=== PATIENT | female | born 2000 | race Caucasian/White ===

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

== ENCOUNTER 2018-03-15 11:20 | Emergency (ER) | payer OTHER ==
[2018-03-15 11:28] VITALS: TEMP 98
--- NOTE | 2018-03-15 11:43 | ED ---
Abdominal Pain HPI - General Chief Complaint: Abdominal Pain Stated Complaint: 9 WEEKS PREG AND CRAMPING Time Seen by Provider: 03/15/18 11:29 Source: patient, RN notes reviewed Mode of arrival: ambulatory Limitations: no limitations - History of Present Illness Initial Comments: 17-year-old female presented emergency Department chief complaint abdominal cramping and early . Patient states she is A0 currently 9 weeks and seen CLIENT COORDINATOR in.. Patient states that she had an argument last night with her fianc. Patient states that she started cramping this morning. She's had no dysuria no hematuria denies any vaginal bleeding or vaginal discharge. Patient states that she had a normal vaginal last time with no complications. Patient denies any diarrhea or constipation this time. Patient denies any current nausea vomiting. - Related Data Home Medications Medication Instructions Recorded Confirmed Xso-Phxy-Dxpqe Acid 1 cap PO DAILY 03/15/18 03/15/18 [-U Capsule (formulary)] Previous Rx's Medication Instructions Recorded Nitrofurantoin Monohyd/M-Cryst 100 mg PO Q12HR #10 cap 03/15/18 [Macrobid] Allergies Allergy/AdvReac Type Severity Reaction Status Date / Time latex Allergy Rash/Hives Verified 03/15/18 12:32 pine nut Allergy Rapid Verified 03/15/18 12:32 Heart Rate tree nut Allergy Unknown Verified 03/15/18 12:32 venom-honey bee Allergy Rash/Hives Verified 03/15/18 12:32 [bee venom (honey bee)] artifical kang tree Allergy Rash/Hives Uncoded 03/15/18 11:28 Review of Systems ROS Statement: Those systems with pertinent positive or pertinent negative responses have been documented in the HPI. ROS Other: All systems not noted in ROS Statement are negative. Past Medical History Past Medical History: No Reported History History of Any Multi-Drug Resistant Organisms: None Reported Past Surgical History: No Surgical Hx Reported Past Psychological History: No Psychological Hx Reported Smoking Status: Current every day smoker Past Alcohol Use History: None Reported Past Drug Use History: None Reported - Past Family History Father Family Medical History: Hypertension General Exam Limitations: no limitations General appearance: alert, in no apparent distress Head exam: Present: atraumatic, normocephalic, normal inspection Neck exam: Present: normal inspection. Absent: tenderness, meningismus, lymphadenopathy Respiratory exam: Present: normal lung sounds bilaterally. Absent: respiratory distress, wheezes, rales, rhonchi, stridor Cardiovascular Exam: Present: regular rate, normal rhythm, normal heart sounds. Absent: systolic murmur, diastolic murmur, rubs, gallop, clicks GI/Abdominal exam: Present: soft, normal bowel sounds. Absent: distended, tenderness, guarding, rebound, rigid Back exam: Absent: CVA tenderness (R), CVA tenderness (L) Skin exam: Present: warm, dry, intact, normal color. Absent: rash Course Vital Signs 03/15/18 11:27 Temperature 98.0 F Pulse Rate 84 Respiratory 18 Rate Blood Pressure 115/67 O2 Sat by Pulse 98 Oximetry Medical Decision Making - Medical Decision Making 17-year-old female presented for abdominal pain and early . Patient that she was around 9 weeks . All son was obtained which shows a gestational sac correlating for less than 6 weeks. Patient does have an hCG of 19,000. Patient will have repeat ultrasound with CLIENT COORDINATOR in one week. I did explain this is concerning for blighted ovum versus dates not according with her. Patient will be treated for a symptomatically bacteria this time - Lab Data Result diagrams: 03/15/18 12:18 03/15/18 12:18 Lab Results 03/15/18 03/15/18 03/15/18 Range/Units 12:18 12:18 12:18 WBC (4.0-11.0) k/uL RBC (3.80-5.40) m/uL Hgb (11.4-16.0) gm/dL Hct (34.0-46.0) % MCV (80.0-100.0) fL MCH (25.0-35.0) pg MCHC (31.0-37.0) g/dL RDW (11.5-15.5) % Plt Count (150-450) k/uL Neutrophils % % Lymphocytes % % Monocytes % % Eosinophils % % Basophils % % Neutrophils # (1.3-7.7) k/uL Lymphocytes # (1.0-4.8) k/uL Monocytes # (0-1.0) k/uL Eosinophils # (0-0.7) k/uL Basophils # (0-0.2) k/uL Anisocytosis Sodium 140 (137-145) mmol/L Potassium 4.3 (3.5-5.1) mmol/L Chloride 109 H (98-107) mmol/L Carbon Dioxide 24 (22-30) mmol/L Anion Gap 7 mmol/L BUN 9 (7-17) mg/dL Creatinine 0.45 L (0.52-1.04) mg/dL Est GFR (CKD-EPI)AfAm >90 (>60 ml/min/1.73 sqM) Est GFR (CKD-EPI)NonAf >90 (>60 ml/min/1.73 sqM) Glucose 90 (74-99) mg/dL Calcium 9.3 (8.4-10.2) mg/dL HCG, Quant 96439.8 mIU/mL Urine Color Yellow Urine Appearance Cloudy H (Clear) Urine pH 7.0 (5.0-8.0) Ur Specific [place] 1.024 (1.001-1.035) Urine Protein Trace H (Negative) Urine Glucose (UA) Negative (Negative) Urine Ketones Negative (Negative) Urine Blood Negative (Negative) Urine Nitrite Negative (Negative) Urine Bilirubin Negative (Negative) Urine Urobilinogen <2.0 (<2.0) mg/dL Ur Leukocyte Esterase Moderate H (Negative) Urine RBC <1 (0-5) /hpf Urine WBC 4 (0-5) /hpf Ur Squamous Epith Cells 7 H (0-4) /hpf Urine Bacteria Rare H (None) /hpf Urine Mucus Occasional H (None) /hpf Blood Type A Positive Blood Type Recheck [facility] ONLY 03/15/18 Range/Units 12:18 WBC 8.1 (4.0-11.0) k/uL RBC 4.66 (3.80-5.40) m/uL Hgb 13.6 (11.4-16.0) gm/dL Hct 40.4 (34.0-46.0) % MCV 86.8 (80.0-100.0) fL MCH 29.2 (25.0-35.0) pg MCHC 33.7 (31.0-37.0) g/dL RDW 16.4 H (11.5-15.5) % Plt Count 168 (150-450) k/uL Neutrophils % 59 % Lymphocytes % 30 % Monocytes % 4 % Eosinophils % 5 % Basophils % 0 % Neutrophils # 4.8 (1.3-7.7) k/uL Lymphocytes # 2.4 (1.0-4.8) k/uL Monocytes # 0.3 (0-1.0) k/uL Eosinophils # 0.4 (0-0.7) k/uL Basophils # 0.0 (0-0.2) k/uL Anisocytosis Slight Sodium (137-145) mmol/L Potassium (3.5-5.1) mmol/L Chloride (98-107) mmol/L Carbon Dioxide (22-30) mmol/L Anion Gap mmol/L BUN (7-17) mg/dL Creatinine (0.52-1.04) mg/dL Est GFR (CKD-EPI)AfAm (>60 ml/min/1.73 sqM) Est GFR (CKD-EPI)NonAf (>60 ml/min/1.73 sqM) Glucose (74-99) mg/dL Calcium (8.4-10.2) mg/dL HCG, Quant mIU/mL Urine Color Urine Appearance (Clear) Urine pH (5.0-8.0) Ur Specific [place] (1.001-1.035) Urine Protein (Negative) Urine Glucose (UA) (Negative) Urine Ketones (Negative) Urine Blood (Negative) Urine Nitrite (Negative) Urine Bilirubin (Negative) Urine Urobilinogen (<2.0) mg/dL Ur Leukocyte Esterase (Negative) Urine RBC (0-5) /hpf Urine WBC (0-5) /hpf Ur Squamous Epith Cells (0-4) /hpf Urine Bacteria (None) /hpf Urine Mucus (None) /hpf Blood Type Blood Type Recheck Disposition Clinical Impression: Threatened miscarriage, Asymptomatic bacteriuria during Disposition: HOME SELF-CARE Condition: Stable Instructions: Threatened Miscarriage (ED) Additional Instructions: Please return to the Emergency Department if symptoms worsen or any other concerns. Prescriptions: Nitrofurantoin Monohyd/M-Cryst [Macrobid] 100 mg PO Q12HR #10 cap Is patient prescribed a controlled substance at d/c from ED?: No Referrals: None,Stated [Primary Care Provider] - 1-2 days Time of Disposition: 13:48
[2018-03-15 12:47] LABS: Anisocytosis Slight; Basophils % (A) 0 %; Eosinophils # (A) 0.4 k/uL (0-0.7); Eosinophils % (A) 5 %; HCT 40.4 % (34.0-46.0); HGB 13.6 gm/dL (11.4-16.0); Lymphocytes # (A) 2.4 k/uL (1.0-4.8); Lymphocytes % (A) 30 %; MCH 29.2 pg (25.0-35.0); MCHC 33.7 g/dL (31.0-37.0); MCV 86.8 fL (80.0-100.0); Mean Platelet Volume 8.9; Monocytes # (A) 0.3 k/uL (0-1.0); Monocytes % (A) 4 %; Neutrophils # (A) 4.8 k/uL (1.3-7.7); Neutrophils % (A) 59 %; Platelet Count 168 k/uL (150-450); RBC 4.66 m/uL (3.80-5.40); RDW 16.4 % (11.5-15.5); WBC 8.1 k/uL (4.0-11.0)
[2018-03-15 12:50] LABS: Appearance,Urine Cloudy (Clear); Bacteria,Urine Rare /hpf; Bilirubin,Urine Negative (Negative); Blood,Urine Negative (Negative); Color,Urine Yellow; Glucose,Urine (UA) Negative (Negative); Ketones,Urine Negative (Negative); Leukocyte Esterase,Urine Moderate (Negative); Mucus,Urine Occasional /hpf; Nitrite,Urine Negative (Negative); Protein,Urine Trace (Negative); RBC,Urine <1 /hpf (0-5); Specific Gravity,Urine 1.024 (1.001-1.035); Squamous Epithelial Cell,Urine 7 /hpf (0-4); Urobilinogen,Urine <2.0 mg/dL (<2.0)
[2018-03-15 12:56] LABS: Anion Gap 7 mmol/L; Blood Urea Nitrogen 9 mg/dL (7-17); Calcium 9.3 mg/dL (8.4-10.2); Carbon Dioxide 24 mmol/L (22-30); Chloride 109 mmol/L (98-107); Glucose 90 mg/dL (74-99); Potassium 4.3 mmol/L (3.5-5.1); Sodium 140 mmol/L (137-145)
--- NOTE | 2018-03-15 13:35 | US ---
EXAMINATION TYPE: Transabdominal DATE OF EXAM: 06/03/17 COMPARISON: NONE CLINICAL HISTORY: Pain. Cramping EXAM PERFORMED: Transabdominal (TA) EXAM MEASUREMENTS: GESTATIONAL AGE / DATING Physician Established: Not yet established Dates by LMP: (8 weeks/6 days) EDC: 10/19/18 Dates by First Scan: No previous this is first scan Dates by Current Scan for: (5 weeks/5 days) - MSD MATERNAL ANATOMY Uterus: 9.2 x 5.0 x 6.4cm Right Ovary: 3.4 x 2.8 x 3.2cm Left Ovary: 2.6 x 1.8 x 2.4cm Post CDS / Adnexa: wnl Presence of free fluid: no Presence of corpus luteal cyst: yes, complex area right ovary = 2.1 x 2.3 x 2.2cm GESTATION / SURVEY MSD: 1.5cm (5 weeks/5 days) Yolk Sac (normal less than 6mm): 0.3cm Unable to visualize pole at this time Date of LMP: 01/12/18 Beta HcG (if available): not available Gestational sac with yolk sac identified within uterus, unable to visualize pole at this time. Probable corpus luteum right ovary. IMPRESSION: EARLY GESTATION VERSUS BLIGHTED OVUM. SHORT-TERM FOLLOW-UP +/- SERIAL BETA HCGS WOULD BE SUGGESTED.
[2018-03-15 13:38] LABS: HCG,Quantitative Serum 19164.8 mIU/mL
[2018-03-15 14:22] VITALS: BP 115/69; PULSE 69; RESP 16
== END 2018-03-15 14:05 | disposition home or self-care (01) ==
LOC: EC 11:20
DX: O20.0 Threatened abortion (principal); O99.89 Other specified diseases and conditions complicating pregnancy, childbirth and the puerperium; R82.71 Bacteriuria; O99.331 Smoking (tobacco) complicating pregnancy, first trimester; F17.200 Nicotine dependence, unspecified, uncomplicated; Z3A.09 9 weeks gestation of pregnancy; Z91.040 Latex allergy status; Z91.018 Allergy to other foods; Z91.030 Bee allergy status; Z91.09 Other allergy status, other than to drugs and biological substances
CPT/HCPCS: 36415; 76801; 80048; 81001; 84702; 85025; 86900; 86901; 99284

== ENCOUNTER 2018-04-11 10:30 | Emergency (ER) | payer OTHER ==
[2018-04-11 10:40] VITALS: RESP 18
--- NOTE | 2018-04-11 12:06 | ED ---
Nausea/Vomiting/Diarrhea HPI - General Chief complaint: Nausea/Vomiting/Diarrhea Stated complaint: 9 wks /bleeding Time Seen by Provider: 04/11/18 10:57 Source: patient, RN notes reviewed, old records reviewed Mode of arrival: ambulatory Limitations: no limitations - History of Present Illness Initial comments: This is a 17-year-old female the ER for evaluation she presents today for evaluation regarding nausea vomiting. Nausea vomiting of . She has history of same, patient has been on antibiotics with no help. She denies any fever cough or congestion no abdominal pain no dysuria no leakage of fluid or vaginal bleeding. MD complaint: nausea, vomiting -: days(s) Description of Vomiting: food contents, watery Description of Diarrhea: green Associated Abdominal Pain: No Location: diffuse Radiation: none Severity: mild Quality: cramping Consistency: intermittent Improves with: none Worsens with: eating Context: other (positive ) Associated Symptoms: loss of appetite, nausea/vomiting, weakness - Related Data Home Medications Medication Instructions Recorded Confirmed Jvv-Lvja-Dhaqc Acid 1 cap PO DAILY@1200 03/15/18 04/11/18 [-U Capsule (formulary)] Ondansetron Odt [Zofran Odt] 4 mg PO Q4H PRN 04/11/18 04/11/18 Pyridoxine [Vitamin B-6] 50 mg PO DAILY 04/11/18 04/11/18 Allergies Allergy/AdvReac Type Severity Reaction Status Date / Time latex Allergy Rash/Hives Verified 04/11/18 11:16 pine nut Allergy Rapid Verified 04/11/18 11:16 Heart Rate tree nut Allergy Unknown Verified 04/11/18 11:16 venom-honey bee Allergy Rash/Hives Verified 04/11/18 11:16 [bee venom (honey bee)] artifical kang tree Allergy Rash/Hives Uncoded 03/15/18 11:28 Review of Systems ROS Statement: Those systems with pertinent positive or pertinent negative responses have been documented in the HPI. ROS Other: All systems not noted in ROS Statement are negative. Past Medical History Past Medical History: No Reported History History of Any Multi-Drug Resistant Organisms: None Reported Past Surgical History: No Surgical Hx Reported Past Psychological History: No Psychological Hx Reported Smoking Status: Current every day smoker Past Alcohol Use History: None Reported Past Drug Use History: None Reported - Past Family History Father Family Medical History: Hypertension General Exam Limitations: no limitations General appearance: alert, in no apparent distress Head exam: Present: atraumatic, normocephalic, normal inspection Eye exam: Present: normal appearance, PERRL, EOMI. Absent: scleral icterus, conjunctival injection, periorbital swelling ENT exam: Present: normal exam, mucous membranes moist Neck exam: Present: normal inspection. Absent: tenderness, meningismus, lymphadenopathy Respiratory exam: Present: normal lung sounds bilaterally. Absent: respiratory distress, wheezes, rales, rhonchi, stridor Cardiovascular Exam: Present: regular rate, normal rhythm, normal heart sounds. Absent: systolic murmur, diastolic murmur, rubs, gallop, clicks GI/Abdominal exam: Present: soft, normal bowel sounds. Absent: distended, tenderness, guarding, rebound, rigid Extremities exam: Present: normal inspection, full ROM, normal capillary refill. Absent: tenderness, pedal edema, joint swelling, calf tenderness Back exam: Present: normal inspection Neurological exam: Present: alert, oriented X3, CN II-XII intact Psychiatric exam: Present: normal affect, normal mood Skin exam: Present: warm, dry, intact, normal color. Absent: rash Course Vital Signs 04/11/18 04/11/18 10:36 12:31 Temperature 98.2 F 98.7 F Pulse Rate 104 H 71 Respiratory 18 18 Rate Blood Pressure 117/77 111/65 O2 Sat by Pulse 98 98 Oximetry Medical Decision Making - Medical Decision Making 17 female the ER with positive nausea vomiting and . Symptoms improved currently feeling better with hydration. Tolerate oral intake and patient can be discharged home - Lab Data Lab Results 04/11/18 Range/Units 11:42 Urine Color Yellow Urine Appearance Clear (Clear) Urine pH 7.0 (5.0-8.0) Ur Specific [place] 1.018 (1.001-1.035) Urine Protein Negative (Negative) Urine Glucose (UA) Negative (Negative) Urine Ketones Negative (Negative) Urine Blood Negative (Negative) Urine Nitrite Negative (Negative) Urine Bilirubin Negative (Negative) Urine Urobilinogen <2.0 (<2.0) mg/dL Ur Leukocyte Esterase Trace H (Negative) Urine RBC <1 (0-5) /hpf Urine WBC 1 (0-5) /hpf Ur Squamous Epith Cells 8 H (0-4) /hpf Amorphous Sediment Rare H (None) /hpf Urine Bacteria Rare H (None) /hpf Hyaline Casts 1 (0-2) /lpf Urine Mucus Occasional H (None) /hpf Disposition Clinical Impression: Nausea & vomiting, Hematemesis, Hyperemesis gravidarum Disposition: HOME SELF-CARE Condition: Good Instructions (If sedation given, give patient instructions): Acute Nausea and Vomiting (ED), Hematemesis (ED) Is patient prescribed a controlled substance at d/c from ED?: No Referrals: None,Stated [Primary Care Provider] - 1-2 days
[2018-04-11 12:32] VITALS: BP 111/65; PULSE 71; TEMP 98.7
[2018-04-11 12:52] LABS: Amorphous Sediment,Urine Rare /hpf; Appearance,Urine Clear (Clear); Bacteria,Urine Rare /hpf; Bilirubin,Urine Negative (Negative); Blood,Urine Negative (Negative); Color,Urine Yellow; Glucose,Urine (UA) Negative (Negative); Hyaline Casts,Urine 1 /lpf (0-2); Ketones,Urine Negative (Negative); Leukocyte Esterase,Urine Trace (Negative); Mucus,Urine Occasional /hpf; Nitrite,Urine Negative (Negative); Protein,Urine Negative (Negative); RBC,Urine <1 /hpf (0-5); Specific Gravity,Urine 1.018 (1.001-1.035); Squamous Epithelial Cell,Urine 8 /hpf (0-4); Urobilinogen,Urine <2.0 mg/dL (<2.0); WBC,Urine 1 /hpf (0-5)
== END 2018-04-11 12:31 | disposition home or self-care (01) ==
LOC: EC 10:30
DX: O21.0 Mild hyperemesis gravidarum (principal); O99.611 Diseases of the digestive system complicating pregnancy, first trimester; K92.0 Hematemesis; O99.89 Other specified diseases and conditions complicating pregnancy, childbirth and the puerperium; R19.7 Diarrhea, unspecified; R53.1 Weakness; R63.0 Anorexia; O99.331 Smoking (tobacco) complicating pregnancy, first trimester; F17.200 Nicotine dependence, unspecified, uncomplicated; Z91.018 Allergy to other foods; Z91.030 Bee allergy status; Z91.040 Latex allergy status; Z91.09 Other allergy status, other than to drugs and biological substances; Z3A.09 9 weeks gestation of pregnancy
CPT/HCPCS: 81001; 87086; 99284

== ENCOUNTER 2019-05-20 13:49 | Emergency (ER) | payer OTHER ==
[2019-05-20 13:53] VITALS: RESP 18
[2019-05-20] MEDS ORDERED: ACETAMINOPHEN TAB 500 MG TAB PO STA (14:21)
--- NOTE | 2019-05-20 14:27 | ED ---
General Adult HPI - General Chief complaint: Upper Respiratory Infection Stated complaint: Cough,Lightheaded Time Seen by Provider: 05/20/19 14:01 Source: patient, RN notes reviewed Mode of arrival: ambulatory Limitations: no limitations - History of Present Illness Initial comments: 19-year-old female presents to the emergency room for a chief complaint of cough. Patient states that she has had a cough since last night. States it is nonproductive. That she has pain in her ribs when she coughs but only when she lost. Patient also complaining of congestion. States it is making her feel lightheaded. She denies fever. She does admit to chills. Patient denies any domestic or foreign travel in the past 14 days. She did have her influenza vac cine. Patient has not taken anything for cough. Patient denies a history of asthma but does admit to daily smoking. Patient has no other complaints at this time including shortness of breath, chest pain, abdominal pain, nausea or vomiting, headache, or visual changes. - Related Data Home Medications Medication Instructions Recorded Confirmed Csv-Eoqt-Gyduz Acid 1 cap PO DAILY@1200 03/15/18 04/11/18 [-U Capsule (formulary)] Ondansetron Odt [Zofran Odt] 4 mg PO Q4H PRN 04/11/18 04/11/18 Pyridoxine [Vitamin B-6] 50 mg PO DAILY 04/11/18 04/11/18 Previous Rx's Medication Instructions Recorded Benzonatate [Tessalon Perles] 200 mg PO Q8H PRN #15 capsule 05/20/19 Allergies Allergy/AdvReac Type Severity Reaction Status Date / Time latex Allergy Rash/Hives Verified 05/20/19 13:54 pine nut Allergy Rapid Verified 05/20/19 13:54 Heart Rate tree nut Allergy Unknown Verified 05/20/19 13:54 venom-honey bee Allergy Rash/Hives Verified 05/20/19 13:54 [bee venom (honey bee)] artifical kang tree Allergy Rash/Hives Uncoded 05/20/19 13:54 Review of Systems ROS Statement: Those systems with pertinent positive or pertinent negative responses have been documented in the HPI. ROS Other: All systems not noted in ROS Statement are negative. Past Medical History Past Medical History: No Reported History History of Any Multi-Drug Resistant Organisms: None Reported Past Surgical History: No Surgical Hx Reported Past Psychological History: Depression Smoking Status: Current every day smoker Past Alcohol Use History: None Reported Past Drug Use History: None Reported - Past Family History Father Family Medical History: Hypertension General Exam Limitations: no limitations General appearance: alert, in no apparent distress Head exam: Present: atraumatic, normocephalic, normal inspection Eye exam: Present: normal appearance, PERRL, EOMI. Absent: scleral icterus, conjunctival injection, periorbital swelling ENT exam: Present: normal exam, normal oropharynx, mucous membranes moist, TM's normal bilaterally, normal external ear exam, other (nasal congestion) Neck exam: Present: normal inspection, full ROM. Absent: tenderness, meningismus, lymphadenopathy Respiratory exam: Present: normal lung sounds bilaterally, chest wall tenderness (anterior chest wall tenderness to palpation), other (cough noted). Absent: respiratory distress, wheezes, rales, rhonchi, stridor Cardiovascular Exam: Present: regular rate, normal rhythm, normal heart sounds. Absent: systolic murmur, diastolic murmur, rubs, gallop, clicks GI/Abdominal exam: Present: soft, normal bowel sounds. Absent: distended, tenderness, guarding, rebound, rigid Neurological exam: Present: alert Course Vital Signs 05/20/19 13:51 Temperature 98.7 F Pulse Rate 80 Respiratory 18 Rate Blood Pressure 120/75 O2 Sat by Pulse 99 Oximetry Procedures - Smoking Cessation Time Spent Discussing Smoking Cessation w/Patient (Minutes): 3 Patient Acknowledges Need for Cessation: Yes Medical Decision Making - Medical Decision Making Vitals are stable. Patient is well appearing. Chest pain is reproducible on exam. Patient is noted to have a cough. Patient also has congestion. No fevers. Lung sounds are clear bilaterally. Chest x-ray shows no acute cardio pulmonary process. I discussed smoking cessation with patient. She likely has viral upper respiratory infection. I recommend that she takes Tessalon Perles and [id number] cough medicine. She will follow up with primary care. She'll return for any worsening symptoms. At this time patient does not meet the screening criteria for coronavirus as she is low risk without any travel or exposure history, no fever. However I do recommend that she practice self quarantining measures for the next 14 days. - Lab Data Lab Results 03/19/20 03/19/20 Range/Units 14:39 14:39 Urine HCG, Qual Not Detected (Not Detectd) Influenza Type A RNA Not Detected (Not Detectd) Influenza Type B (PCR) Not Detected (Not Detectd) Disposition Clinical Impression: Cough Disposition: HOME SELF-CARE Condition: Good Instructions (If sedation given, give patient instructions): Acute Cough (ED) Additional Instructions: Please take Tessalon Perles as directed. You may also take [id number] cold and flu medications. Follow-up with primary care in 1-2 days. Return to the emergency room for any worsening symptoms. Prescriptions: Benzonatate [Tessalon Perles] 200 mg PO Q8H PRN #15 capsule PRN Reason: Cough Is patient prescribed a controlled substance at d/c from ED?: No Referrals: Prisca Donovan MD [REFERRING] - 1-2 days Time of Disposition: 15:15
--- NOTE | 2019-05-20 14:49 | XR ---
EXAMINATION TYPE: XR chest 2V DATE OF EXAM: 05/20/2019 COMPARISON: 09/25/2017 HISTORY: Cough, fever, and dizziness TECHNIQUE: Frontal and lateral views of the chest are obtained. FINDINGS: There is no focal air space opacity, pleural effusion, or pneumothorax seen. The cardiac silhouette size is within normal limits. The osseous structures are intact. IMPRESSION: No acute cardiopulmonary process.
[2019-05-20 15:39] VITALS: BP 123/78; PULSE 70; TEMP 98
== END 2019-05-20 15:32 | disposition home or self-care (01) ==
LOC: EC 13:49
DX: R05 Cough (principal); R09.81 Nasal congestion; R07.9 Chest pain, unspecified; Z71.6 Tobacco abuse counseling; R09.89 Other specified symptoms and signs involving the circulatory and respiratory systems; R07.81 Pleurodynia; R42 Dizziness and giddiness; R68.83 Chills (without fever); F17.200 Nicotine dependence, unspecified, uncomplicated; Z91.018 Allergy to other foods; Z91.030 Bee allergy status; Z91.040 Latex allergy status; Z91.048 Other nonmedicinal substance allergy status; Z82.49 Family history of ischemic heart disease and other diseases of the circulatory system
CPT/HCPCS: 71046; 81025; 87502; 99283; 99406

== ENCOUNTER 2019-07-17 18:28 | Emergency (ER) | payer OTHER ==
[2019-07-17 18:37] VITALS: BP 120/73; PULSE 75; RESP 18; TEMP 98.1
[2019-07-17] MEDS ORDERED: KETOROLAC 30 MG/ML 1 ML VIAL IM STA (18:46)
--- NOTE | 2019-07-17 18:46 | ED ---
Lower Extremity Injury HPI - General Chief Complaint: Extremity Injury, Lower Stated Complaint: IHS L Ankle Injury Time Seen by Provider: 07/17/19 18:39 Source: patient Mode of arrival: ambulatory Limitations: no limitations - History of Present Illness Initial Comments: Patient is a 19-year-old female presenting to emergency Department with chief complaint of left ankle pain. Patient reports incident occurred on Friday when she tripped over a box and inverted her left ankle and along the she had on the cement and another box. Patient reports there was initially swelling of the left ankle particularly on the left lateral malleolus. Patient reports a pulling ice compresses and taking ibuprofen which helped with the swelling. Denies any skin discoloration. Denies any numbness or tingling. He reports limited range of motion due to pain. Patient reports pain with plantar flexion inversion and eversion. Denies any midfoot or fifth metatarsal tenderness. - Related Data Home Medications Medication Instructions Recorded Confirmed Mwk-Gtuk-Uyonr Acid 1 cap PO DAILY@1200 03/15/18 04/11/18 [-U Capsule (formulary)] Ondansetron Odt [Zofran Odt] 4 mg PO Q4H PRN 04/11/18 04/11/18 Pyridoxine [Vitamin B-6] 50 mg PO DAILY 04/11/18 04/11/18 Previous Rx's Medication Instructions Recorded Benzonatate [Tessalon Perles] 200 mg PO Q8H PRN #15 capsule 05/20/19 Allergies Allergy/AdvReac Type Severity Reaction Status Date / Time latex Allergy Rash/Hives Verified 07/17/19 18:37 pine nut Allergy Rapid Verified 07/17/19 18:37 Heart Rate tree nut Allergy Unknown Verified 07/17/19 18:37 venom-honey bee Allergy Rash/Hives Verified 07/17/19 18:37 [bee venom (honey bee)] artifical kang tree Allergy Rash/Hives Uncoded 07/17/19 18:37 Review of Systems ROS Statement: Those systems with pertinent positive or pertinent negative responses have been documented in the HPI. ROS Other: All systems not noted in ROS Statement are negative. Past Medical History Past Medical History: No Reported History History of Any Multi-Drug Resistant Organisms: None Reported Past Surgical History: No Surgical Hx Reported Past Psychological History: Depression Smoking Status: Current every day smoker Past Alcohol Use History: Occasional Past Drug Use History: None Reported - Past Family History Father Family Medical History: Hypertension General Exam Limitations: no limitations General appearance: alert, in no apparent distress Head exam: Present: atraumatic, normocephalic, normal inspection Eye exam: Present: normal appearance, PERRL, EOMI Pupils: Present: normal accommodation ENT exam: Present: normal exam, normal oropharynx, mucous membranes moist Neck exam: Present: normal inspection, full ROM Respiratory exam: Present: normal lung sounds bilaterally Cardiovascular Exam: Present: regular rate, normal rhythm, normal heart sounds Extremities exam: Present: tenderness (Tenderness along the lateral and medial malleolus. No midfoot or fifth metatarsal tenderness. Patient is unable to walk more 2 steps. No tenderness in the knee or tib-fib region.), normal capillary refill, joint swelling (O malleolus left), other (Post to all our and radial pulses bilaterally. +2 dorsalis pedis and posterior tibialis b ilaterally.). Absent: normal inspection (Mild swelling along the lateral malleolus left ankle. No skin discoloration), full ROM (Limited range of motion with plantar flexion, eversion and inversion.), pedal edema, calf tenderness Back exam: Present: normal inspection, full ROM Neurological exam: Present: alert, oriented X3 Psychiatric exam: Present: normal affect, normal mood Skin exam: Present: warm, dry, intact, normal color Course Vital Signs 07/17/19 18:33 Temperature 98.1 F Pulse Rate 75 Respiratory 18 Rate Blood Pressure 120/73 O2 Sat by Pulse 99 Oximetry Procedures - Orthopedic Splinting/Casting Injury #1 Side: left Lower Extremity Injury Location: ankle Lower Extremity Immobilizer: Abhay wrap Medical Decision Making - Medical Decision Making Patient is a 19-year-old female presenting to emergency prompt a chief complaint of left ankle pain. Patient tripped over a box and inverted her left foot. Examination patient has limited range of motion with inversion, eversion, plantar flexion. Mild swelling along the lateral malleolus. X-ray reveals no fractures or dislocations. Abhay wrap is applied. Patient advised to follow with an water treatment specialist if symptoms not improved. She was advised to keep the foot elevated, apply as compress an alternate between Tylenol and Motrin for pain control. Return parameters were thoroughly discussed the patient was understanding and agreeable. Case discussed with physician. Disposition Clinical Impression: Left ankle sprain Disposition: HOME SELF-CARE Condition: Stable Instructions (If sedation given, give patient instructions): Ankle Sprain (ED) Additional Instructions: Keep the foot elevated. Avoid weightbearing on the left foot. Apply ice compress an alternate between Tylenol and Motrin for pain control. Follow with water treatment specialist. Return to emergency department if symptoms worsen. Is patient prescribed a controlled substance at d/c from ED?: No Referrals: None,Stated [Primary Care Provider] - 1-2 days Georgi Patel MD [STAFF PHYSICIAN] - 1-2 days Time of Disposition: 20:24
--- NOTE | 2019-07-17 19:41 | XR ---
EXAMINATION TYPE: XR foot complete LT DATE OF EXAM: 07/17/2019 COMPARISON: NONE HISTORY: Foot and ankle pain TECHNIQUE: 3 views FINDINGS: Metatarsals are intact. I see no fracture nor dislocation. Joint spaces are normal. There a re no erosions. IMPRESSION: Negative left foot exam.
--- NOTE | 2019-07-17 19:41 | XR ---
EXAMINATION TYPE: XR ankle complete LT DATE OF EXAM: 07/17/2019 COMPARISON: NONE HISTORY: Foot and ankle pain TECHNIQUE: 3 views FINDINGS: Ankle mortise is anatomic. I see no fracture nor dislocation. Joint spaces are normal. Soft tissues appear normal. IMPRESSION: Negative left ankle exam.
== END 2019-07-17 20:40 | disposition home or self-care (01) ==
LOC: EC 18:28
DX: S93.402A Sprain of unspecified ligament of left ankle, initial encounter (principal); F32.9 Major depressive disorder, single episode, unspecified; F17.200 Nicotine dependence, unspecified, uncomplicated; Z91.040 Latex allergy status; Z91.048 Other nonmedicinal substance allergy status; Z91.018 Allergy to other foods; X50.1XXA Overexertion from prolonged static or awkward postures, initial encounter; Y93.89 Activity, other specified; Y92.69 Other specified industrial and construction area as the place of occurrence of the external cause; Y99.0 Civilian activity done for income or pay
CPT/HCPCS: 73610; 73630; 96372; 99283; J1885; 96374

== ENCOUNTER → 2019-10-19 | Outpatient (CLI) | payer OTHER ==
--- NOTE | 2019-10-20 07:00 | US ---
EXAMINATION TYPE: Transabdominal DATE OF EXAM: 10/19/2019 3:58 PM COMPARISON: NONE CLINICAL HISTORY: Z36 Confirm dates. EXAM PERFORMED: Transabdominal (TA) EXAM MEASUREMENTS: GESTATIONAL AGE / DATING Physician Established: Not yet established Dates by LMP: ( 9 weeks/5 days) EDC: 05/18/20 Dates by First Scan: No previous this is first scan Dates by Current Scan for: ( 9 weeks/0 days) EDC: 10/23/20 MATERNAL ANATOMY Uterus: 11.0 x 4.7 x 7.2 Right Ovary: 5.0 x 2.6 x 2.4cm, cyst measuring 2.7 x .2 x 2.0cm Left Ovary: 2.6 x 2.0 x 2.5 Post CDS / Adnexa: no Presence of free fluid: no Presence of corpus luteal cyst: simple appearing cyst as measured above Presence of subchorionic bleed: no GESTATION / SURVEY CRL: 2.2cm (9 weeks/0 days) Yolk Sac (normal less than 6mm): 2.mm Heart Rate: 170 bpm IUP: Viable IUP Nuchal Translucency 10-14wks (normal less than 3mm): Date of LMP: 08/12/19 Beta HcG (if available): Not available at this time IMPRESSION: Single viable intervertebral as discussed above.
== END | disposition home or self-care (01) ==
LOC: RADUSWWP 15:14
PROVIDERS: ATTEND Obstetrics & Gynecology
DX: Z36.9 Encounter for antenatal screening, unspecified (principal); Z3A.09 9 weeks gestation of pregnancy
CPT/HCPCS: 76801

== ENCOUNTER 2019-11-23 16:11 | Emergency (ER) | payer OTHER ==
[2019-11-23 16:17] VITALS: RESP 18
--- NOTE | 2019-11-23 16:54 | XR ---
EXAMINATION TYPE: XR chest 2V DATE OF EXAM: 11/23/2019 COMPARISON: 05/20/2019 TECHNIQUE: PA and lateral views submitted. HISTORY: Cough FINDINGS: The lungs are clear and there is no pneumothorax, pleural effusion, or focal pneumonia. No overt fa ilure. Heart size stable. Lucency along the right paratracheal and likely represents air within the e sophagus. IMPRESSION: 1. Lucency along the right paratracheal likely representing air within the esophagus. If there is con cern for pneumomediastinum correlate with CT scan chest.
--- NOTE | 2019-11-23 17:01 | ED ---
URI HPI - General Chief Complaint: Upper Respiratory Infection Stated Complaint: Coughing,light headed Time Seen by Provider: 11/23/19 16:18 Source: patient Mode of arrival: wheelchair Limitations: no limitations - History of Present Illness Initial Comments: 19yo female presenting today for cc oc cough. Patient states she has had a cough for the past 2-3 days as well as congestion and a sore throat. Patient states at time she feels lightheaded from coughing. Patient denies fevers. Denies dyspnea, hemoptysis. Denies chest pain or leg swelling. Denies diarrhea, rashes. Admits to some vomiting which she states has been normal throughout the . Denies urinary symptoms, abdominal pain, vaginal bleeding. Upon arrival patient appears well nontoxic. She states she would like covid test. - Related Data Home Medications Medication Instructions Recorded Confirmed Agw-Vxkk-Aqwvp Acid 1 cap PO DAILY@1200 03/15/18 04/11/18 [-U Capsule (formulary)] Ondansetron Odt [Zofran Odt] 4 mg PO Q4H PRN 04/11/18 04/11/18 Pyridoxine [Vitamin B-6] 50 mg PO DAILY 04/11/18 04/11/18 Previous Rx's Medication Instructions Recorded Benzonatate [Tessalon Perles] 200 mg PO Q8H PRN #15 capsule 05/20/19 Allergies Allergy/AdvReac Type Severity Reaction Status Date / Time latex Allergy Rash/Hives Verified 11/23/19 16:17 pine nut Allergy Rapid Verified 11/23/19 16:17 Heart Rate tree nut Allergy Unknown Verified 11/23/19 16:17 venom-honey bee Allergy Rash/Hives Verified 11/23/19 16:17 [bee venom (honey bee)] artifical kang tree Allergy Rash/Hives Uncoded 11/23/19 16:17 Review of Systems ROS Statement: Those systems with pertinent positive or pertinent negative responses have been documented in the HPI. ROS Other: All systems not noted in ROS Statement are negative. Past Medical History Past Medical History: No Reported History Additional Past Medical History / Comment(s): Pneumonia History of Any Multi-Drug Resistant Organisms: None Reported Past Surgical History: No Surgical Hx Reported Past Psychological History: Depression Smoking Status: Current every day smoker Past Alcohol Use History: None Reported Past Drug Use History: None Reported - Past Family History Father Family Medical History: Hypertension General Exam - General Exam Comments Initial Comments: General: The patient is awake and alert, in no distress, and does not appear acutely ill. Eye: Pupils are equal, round and reactive to light, extra-ocular movements are intact. No nystagmus. There is normal conjunctiva bilaterally. No signs of icterus. Ears, nose, mouth and throat: There are moist mucous membranes and no oral lesions. Neck: The neck is supple, there is no tenderness or JVD. Cardiovascular: There is a regular rate and rhythm. No murmur, rub or gallop is appreciated. Respiratory: Lungs are clear to auscultation, respirations are non-labored, breath sounds are equal. No wheezes, stridor, rales, or rhonchi. Gastrointestinal: Soft, non-tender abdomen without masses or organomegaly noted. There is no rebound or guarding present. Musculoskeletal: Normal ROM, no tenderness. Strength 5/5. Sensation intact. Radial pulses equal bilaterally 2+. Neurological: A&O x 3. CN II-XII intact grossly, There are no obvious motor or sensory deficits. Coordination appears grossly intact. Speech is normal. Skin: Skin is warm and dry and no rashes or lesions are noted. No Calf pain or LE edema. Psychiatric: Cooperative, appropriate mood & affect, normal judgment. Limitations: no limitations Course Vital Signs 11/23/19 16:12 Temperature 98.4 F Pulse Rate 90 Respiratory 18 Rate Blood Pressure 127/78 O2 Sat by Pulse 97 Oximetry Medical Decision Making - Medical Decision Making repeat CXR clear. Initial saw what was felt air in esophagus. I do not have clinical suspicion for pneumomediastinum there is no crepitus palpation of the anterior chest wall abnormal findings on auscultation of the lungs. No fevers. Appears nontoxic. Strep (-) Covid pending. No chest pain. FHT 160s range. WNL. Patient has no abdominal complaints. VS wihtin acceptable limits. Patient discharged appearing well. Case including imaging studies discussed with Dr. kwan who is agreeable to care plan and discharge. - Lab Data Lab Results 11/23/19 Range/Units 16:36 Group A Strep Rapid Negative (Negative) Disposition Clinical Impression: Cough, Congestion of nasal sinus, Sore throat Disposition: HOME SELF-CARE Condition: Good Instructions (If sedation given, give patient instructions): Upper Respiratory Infection (ED) Additional Instructions: Please use medication as discussed. Please follow-up with family doctor in the next 2 days, OBGYN in next week. Please return to emergency room if the symptoms increase or worsen or for any other concerns. Is patient prescribed a controlled substance at d/c from ED?: No Referrals: None,Stated [Primary Care Provider] - 1-2 days Time of Disposition: 17:31
--- NOTE | 2019-11-23 17:26 | XR ---
EXAMINATION TYPE: XR chest 1V DATE OF EXAM: 11/23/2019 COMPARISON: Prior chest x-ray 11/23/2019 at earlier time HISTORY: Cough, congestion, abnormal chest x-ray TECHNIQUE: Single frontal view of the chest is obtained. FINDINGS: There is no focal air space opacity, pleural effusion, or pneumothorax seen. The cardiac silhouette size is within normal limits. The osseous structures are intact. IMPRESSION: No acute process.
[2019-11-23 17:49] VITALS: BP 130/79; PULSE 82; TEMP 98
== END 2019-11-23 17:49 | disposition home or self-care (01) ==
LOC: EC 16:11
DX: J02.9 Acute pharyngitis, unspecified (principal); Z20.828 Contact with and (suspected) exposure to other viral communicable diseases; F17.200 Nicotine dependence, unspecified, uncomplicated; Z91.040 Latex allergy status; Z91.010 Allergy to peanuts; Z91.030 Bee allergy status
CPT/HCPCS: 99283 ×2; 87081; 87430; 71045; 71046; U0003

== ENCOUNTER 2019-11-29 07:31 | Emergency (ER) | payer OTHER ==
[2019-11-29 07:41] VITALS: TEMP 98
[2019-11-29] MEDS ORDERED: IPRATROPIUM-ALBUTEROL 3 ML NEB INHALATION STA (08:29)
[2019-11-29 08:44] LABS: Basophils % (A) 1 %; Eosinophils # (A) 0.3 k/uL (0-0.7); Eosinophils % (A) 4 %; HCT 41.4 % (34.0-46.0); HGB 14.1 gm/dL (11.4-16.0); Lymphocytes # (A) 2.9 k/uL (1.0-4.8); Lymphocytes % (A) 41 %; MCH 28.9 pg (25.0-35.0); Mean Platelet Volume 8.5; Monocytes # (A) 0.2 k/uL (0-1.0); Monocytes % (A) 3 %; Neutrophils # (A) 3.5 k/uL (1.3-7.7); Neutrophils % (A) 50 %; Platelet Count 159 k/uL (150-450); RBC 4.87 m/uL (3.80-5.40); RDW 12.7 % (11.5-15.5)
[2019-11-29 08:55] LABS: ALT 17 U/L (4-34); AST 18 U/L (14-36); African American GFR (CKD) >90 (>60 ml/min/1.73 sqM); Albumin 3.8 g/dL (3.5-5.0); Alkaline Phosphatase 48 U/L (38-126); Anion Gap 6 mmol/L; Blood Urea Nitrogen 5 mg/dL (7-17); Calcium 8.8 mg/dL (8.4-10.2); Carbon Dioxide 22 mmol/L (22-30); Chloride 107 mmol/L (98-107); Glucose 93 mg/dL (74-99); Magnesium 1.8 mg/dL (1.6-2.3); Non-African American GFR(CKD) >90 (>60 ml/min/1.73 sqM); Potassium 3.9 mmol/L (3.5-5.1); Sodium 135 mmol/L (137-145); Total Bilirubin 0.4 mg/dL (0.2-1.3); Total Protein 6.5 g/dL (6.3-8.2)
--- NOTE | 2019-11-29 09:08 | XR ---
EXAMINATION TYPE: XR chest 2V DATE OF EXAM: 11/29/2019 COMPARISON: 11/23/2019 TECHNIQUE: PA and lateral views submitted. HISTORY: Chest pain FINDINGS: The lungs are clear and there is no pneumothorax, pleural effusion, or focal pneumonia. No overt fa ilure. Heart size normal. IMPRESSION: 1. No acute process.
--- NOTE | 2019-11-29 09:33 | ED ---
General Adult HPI - General Chief complaint: Chest Pain Stated complaint: chest pain, SOB Time Seen by Provider: 11/29/19 08:03 Source: patient, RN notes reviewed Mode of arrival: ambulatory Limitations: no limitations - History of Present Illness Initial comments: 19-year-old female presents emergency Department with chief complaint of cough congestion. Patient has been sick for 2 weeks was seen here approximately one week ago had cold the testing which was negative. Patient states her cough is persistent and worsening which is productive. Patient states she's had some shortness of breath. She states that she's been coughing so hard that she has some rib pain. She states denies any abdominal pain. Patient currently is . She's had some intermittent nausea vomiting denies any vaginal bleeding or vaginal discharge. 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 Patient has appointment tomorrow. - Related Data Home Medications Medication Instructions Recorded Confirmed Zxp-Ujem-Nausd Acid 1 cap PO DAILY@1200 03/15/18 04/11/18 [-U Capsule (formulary)] Ondansetron Odt [Zofran Odt] 4 mg PO Q4H PRN 04/11/18 04/11/18 Pyridoxine [Vitamin B-6] 50 mg PO DAILY 04/11/18 04/11/18 Previous Rx's Medication Instructions Recorded Benzonatate [Tessalon Perles] 200 mg PO Q8H PRN #15 capsule 05/20/19 Albuterol Sulfate [Proair Hfa] 1 - 2 puff INHALATION Q4HR PRN #1 11/29/19 inhaler Azithromycin [Zithromax Z-pack (6 0 mg PO DIRECTED #1 pack 11/29/19 tabs)] Allergies Allergy/AdvReac Type Severity Reaction Status Date / Time latex Allergy Rash/Hives Verified 11/29/19 07:41 pine nut Allergy Rapid Verified 11/29/19 07:41 Heart Rate tree nut Allergy Unknown Verified 11/29/19 07:41 venom-honey bee Allergy Rash/Hives Verified 11/29/19 07:41 [bee venom (honey bee)] artifical kang tree Allergy Rash/Hives Uncoded 11/29/19 07:41 Review of Systems ROS Statement: Those systems with pertinent positive or pertinent negative responses have been documented in the HPI. ROS Other: All systems not noted in ROS Statement are negative. Past Medical History Past Medical History: No Reported History Additional Past Medical History / Comment(s): Pneumonia History of Any Multi-Drug Resistant Organisms: None Reported Past Surgical History: No Surgical Hx Reported Past Psychological History: Depression Smoking Status: Current some day smoker Past Alcohol Use History: None Reported Past Drug Use History: None Reported - Past Family History Father Family Medical History: Hypertension General Exam Limitations: no limitations General appearance: alert, in no apparent distress Head exam: Present: atraumatic, normocephalic, normal inspection Eye exam: Present: normal appearance, PERRL, EOMI. Absent: scleral icterus, conjunctival injection, periorbital swelling ENT exam: Present: normal exam, normal oropharynx, mucous membranes moist Neck exam: Present: normal inspection, full ROM. Absent: tenderness, meningismus, lymphadenopathy Respiratory exam: Present: wheezes. Absent: respiratory distress, rales, rhonchi, stridor Cardiovascular Exam: Present: regular rate, normal rhythm, normal heart sounds. Absent: systolic murmur, diastolic murmur, rubs, gallop, clicks GI/Abdominal exam: Present: soft, normal bowel sounds. Absent: distended, tenderness, guarding, rebound, rigid Course Vital Signs 11/29/19 07:38 Temperature 98.0 F Pulse Rate 97 Respiratory 20 Rate Blood Pressure 109/71 O2 Sat by Pulse 98 Oximetry EKG Findings - EKG Comments: EKG Findings:: EKG performed at 7:47 normal sinus rhythm rate of 85 CO 1:30 QRS 88 QT/QTC 386/459 Medical Decision Making - Medical Decision Making Chest x-rays unremarkable. Patient did have notable wheezing improved after DuoNeb treatment. Patient has been sick for 2 weeks treated for acute bronchitis. Patient started on antibiotics. Patient will not be given steroids as she is . She has an appointment with her SEAMING MACHINE OPERATOR tomorrow. She is instructed to stop smoking.I counseled the patient for smoking cessation for greater than 3 minutes. Return parameters were discussed. - Lab Data Result diagrams: 11/29/19 08:35 11/29/19 08:35 Lab Results 11/29/19 11/29/19 11/29/19 Range/Units 08:35 08:35 08:35 WBC 7.0 (3.8-10.6) k/uL RBC 4.87 (3.80-5.40) m/uL Hgb 14.1 (11.4-16.0) gm/dL Hct 41.4 (34.0-46.0) % MCV 85.0 (80.0-100.0) fL MCH 28.9 (25.0-35.0) pg MCHC 34.0 (31.0-37.0) g/dL RDW 12.7 (11.5-15.5) % Plt Count 159 (150-450) k/uL Neutrophils % 50 % Lymphocytes % 41 % Monocytes % 3 % Eosinophils % 4 % Basophils % 1 % Neutrophils # 3.5 (1.3-7.7) k/uL Lymphocytes # 2.9 (1.0-4.8) k/uL Monocytes # 0.2 (0-1.0) k/uL Eosinophils # 0.3 (0-0.7) k/uL Basophils # 0.0 (0-0.2) k/uL Sodium 135 L (137-145) mmol/L Potassium 3.9 (3.5-5.1) mmol/L Chloride 107 (98-107) mmol/L Carbon Dioxide 22 (22-30) mmol/L Anion Gap 6 mmol/L BUN 5 L (7-17) mg/dL Creatinine 0.38 L (0.52-1.04) mg/dL Est GFR (CKD-EPI)AfAm >90 (>60 ml/min/1.73 sqM) Est GFR (CKD-EPI)NonAf >90 (>60 ml/min/1.73 sqM) Glucose 93 (74-99) mg/dL Calcium 8.8 (8.4-10.2) mg/dL Magnesium 1.8 (1.6-2.3) mg/dL Total Bilirubin 0.4 (0.2-1.3) mg/dL AST 18 (14-36) U/L ALT 17 (4-34) U/L Alkaline Phosphatase 48 (38-126) U/L Troponin I <0.012 (0.000-0.034) ng/mL Total Protein 6.5 (6.3-8.2) g/dL Albumin 3.8 (3.5-5.0) g/dL Disposition Clinical Impression: Acute bronchitis, Costochondritis, acute Disposition: HOME SELF-CARE Condition: Stable Instructions (If sedation given, give patient instructions): Costochondritis (ED) Additional Instructions: Please return to the Emergency Department if symptoms worsen or any other concerns. Prescriptions: Albuterol Sulfate [Proair Hfa] 1 - 2 puff INHALATION Q4HR PRN #1 inhaler PRN Reason: difficulty in breathing Azithromycin [Zithromax Z-pack (6 tabs)] 0 mg PO DIRECTED #1 pack Is patient prescribed a controlled substance at d/c from ED?: No Referrals: None,Stated [Primary Care Provider] - 1-2 days Time of Disposition: 09:32
[2019-11-29 10:15] VITALS: BP 107/59; PULSE 84; RESP 16
== END 2019-11-29 10:15 | disposition home or self-care (01) ==
LOC: EC 07:31
DX: O99.512 Diseases of the respiratory system complicating pregnancy, second trimester (principal); J20.9 Acute bronchitis, unspecified; O99.89 Other specified diseases and conditions complicating pregnancy, childbirth and the puerperium; M94.0 Chondrocostal junction syndrome [Tietze]; O99.332 Smoking (tobacco) complicating pregnancy, second trimester; F17.200 Nicotine dependence, unspecified, uncomplicated; Z91.018 Allergy to other foods; Z91.030 Bee allergy status; Z91.040 Latex allergy status; Z91.048 Other nonmedicinal substance allergy status; Z3A.14 14 weeks gestation of pregnancy
CPT/HCPCS: 36415; 71046; 80053; 83735; 84484; 85025; 93005; 94640; 99285

== ENCOUNTER 2020-03-14 15:31 | Outpatient (CLI) | payer OTHER ==
[2020-03-14 16:26] LABS: Appearance,Urine Clear (Clear); Bilirubin,Urine Negative (Negative); Blood,Urine Negative (Negative); Color,Urine Yellow; Glucose,Urine (UA) Trace (Negative); Ketones,Urine Negative (Negative); Leukocyte Esterase,Urine Negative (Negative); Nitrite,Urine Negative (Negative); PH, Urine 5.5 (5.0-8.0); Protein,Urine Negative (Negative); Specific Gravity,Urine 1.023 (1.001-1.035); Urobilinogen,Urine <2.0 mg/dL (<2.0)
[2020-03-14 16:28] VITALS: BP 124/66; PULSE 95; RESP 16; TEMP 98.2
--- NOTE | 2020-03-14 16:44 | P.MSEPDOC ---
Presenting Problems - Arrival Data Date of Arrival on Unit: 03/14/20 Time of Arrival on Unit: 15:31 Mode of Transport: Ambulatory - Complaint OB-Reason for Admission/Chief Complaint: Other Comment: pt here with c/o constant cramping and decreased movement since 03-13 at. 0900, abd soft and non tender, pt denies lof/vb, denies contractions, denies. complications with , pt states she has been experiencing cramping last several weeks but the pain has intensified since yesterday at 0900 Medical History - Information : 3 Para: 2 Term: 2 : 0 Abortions: Spontaneous or Elective: 0 Number of Living Children: 2 - Gestational Age Gestational Age by YEHUDA (wks/days): 30 Weeks and 5 Days - History Complications: Smoker Review of Systems - Review of Systems Constitutional: No problems Breast: No problems ENT: No problems Cardiovascular: No problems Respiratory: No problems Gastrointestinal: No problems Genitourinary: No problems Musculoskeletal: No problems Neurological: No problems Skin: No problems Vital Signs - Temperature Temperature: 98.2 F Temperature Source: Temporal Artery Scan - Pulse Right Brachial Pulse Rate: 95 Pulse Assessment Method: Automatic Cuff - Respirations Respiratory Rate: 16 Oxygen Delivery Method: Room Air - Blood Pressure Right Arm Blood Pressure: 124/66 Blood Pressure Mean: 85 Blood Pressure Source: Automatic Cuff Medical Screen Scoring (Pre) - Cervical Exam Dilation: 0 cm = 0 Membranes: Intact - Uterine Contractions Frequency: N/A Duration: N/A Intensity: N/A - Maternal Vital Signs Maternal Temperature: N/A Maternal Blood Pressure: N/A Signs of Preeclampsia: N/A Maternal Respirations: N/A - Maternal Trauma Maternal Trauma: N/A - Assessment - Baby A Baseline FHR: 140 Heart Rate - NICHD Category: Category I (Normal) = 0 NST: Reactive Position: N/A Station: N/A - Total Score - Baby A Total Score - Baby A: 0 - Total Score - Baby B Total Score - Baby B: 0 - Total Score - Baby C Total Score - Baby C: 0 - Level of Risk - Baby A Level of Risk - Baby A: Low (0-5) - Level of Risk - Baby B Level of Risk - Baby B: Low (0-5) - Level of Risk - Baby C Level of Risk - Baby C: Low (0-5) Physician Notification (Pre) - Physician Notified Physician Notified Date: 03/14/20 Physician Notified Time: 16:08 New Order Received: Yes (u/a, cervical exam) Disposition - Disposition OB Disposition: Observe, Triage I agree with the RN Medical Screening Exam: Yes Risk & Benefit of care provided described in d/c instruction: Yes Diagnosis: RELATED CONDITIONS, UNSPECIFIED, THIRD TRIMESTER
== END 2020-03-14 16:35 | disposition home or self-care (01) ==
LOC: FBPOP 15:31
PROVIDERS: ATTEND Obstetrics & Gynecology
DX: O26.93 Pregnancy related conditions, unspecified, third trimester (principal); Z3A.30 30 weeks gestation of pregnancy
CPT/HCPCS: 59025; 81003; G0463; 99213

== ENCOUNTER 2020-04-27 15:15 | Outpatient (CLI) | payer OTHER ==
[2020-04-27 16:50] VITALS: BP 127/66; PULSE 86; RESP 16; TEMP 97.8
--- NOTE | 2020-04-28 07:34 | P.MSEPDOC ---
Presenting Problems - Arrival Data Date of Arrival on Unit: 04/27/20 Time of Arrival on Unit: 15:10 Mode of Transport: Wheelchair - Complaint OB-Reason for Admission/Chief Complaint: Possible Onset of Labor Medical History - Information : 3 Para: 2 Term: 2 : 0 Abortions: Spontaneous or Elective: 0 Number of Living Children: 2 - Gestational Age Gestational Age by YEHUDA (wks/days): 37 Weeks and 0 Days - History Complications: Smoker Review of Systems - Review of Systems Constitutional: No problems Breast: No problems ENT: No problems Cardiovascular: No problems Respiratory: No problems Gastrointestinal: No problems Genitourinary: No problems Musculoskeletal: No problems Neurological: No problems Skin: No problems Vital Signs - Temperature Temperature: 97.8 F Temperature Source: Temporal Artery Scan - Pulse Pulse Oximetery Pulse Rate: 86 Pulse Assessment Method: Pulse Oximetry - Respirations Respiratory Rate: 16 Oxygen Delivery Method: Room Air O2 Sat by Pulse Oximetry: 97 - Blood Pressure Right Arm Sitting Blood Pressure: 127/66 Blood Pressure Mean: 86 Blood Pressure Source: Automatic Cuff Medical Screen Scoring (Pre) - Cervical Exam Dilation: 1-3 cm = 1 Effacement: More than 50% = 2 Membranes: Intact - Uterine Contractions Frequency: > 5 minutes apart = 1 Duration: > 40 seconds = 2 Intensity: N/A - Maternal Vital Signs Maternal Temperature: N/A Maternal Blood Pressure: N/A Signs of Preeclampsia: N/A Maternal Respirations: N/A - Maternal Trauma Maternal Trauma: N/A - Assessment - Baby A Baseline FHR: 130 Heart Rate - NICHD Category: Category I (Normal) = 0 NST: Reactive Position: N/A Station: N/A - Total Score - Baby A Total Score - Baby A: 6 - Total Score - Baby B Total Score - Baby B: 6 - Total Score - Baby C Total Score - Baby C: 6 - Level of Risk - Baby A Level of Risk - Baby A: Medium (6-9) - Level of Risk - Baby B Level of Risk - Baby B: Medium (6-9) - Level of Risk - Baby C Level of Risk - Baby C: Medium (6-9) Physician Notification (Pre) - Physician Notified Physician Notified Date: 04/27/20 Physician Notified Time: 16:25 New Order Received: Yes Disposition - Disposition OB Disposition: Discharge to home, Written follow up instructions reviewed Discharge Date: 04/27/20 Discharge Time: 16:27 I agree with the RN Medical Screening Exam: Yes Case reviewed; plan agreed upon as documented in EMR&OBIX.: Yes Diagnosis: FALSE LABOR AT OR AFTER 37 COMPLETED WEEKS OF GESTATION
== END 2020-04-27 16:27 | disposition home or self-care (01) ==
LOC: FBPOP 15:15
PROVIDERS: ATTEND Obstetrics & Gynecology
DX: O47.1 False labor at or after 37 completed weeks of gestation (principal); Z3A.37 37 weeks gestation of pregnancy; O99.330 Smoking (tobacco) complicating pregnancy, unspecified trimester
CPT/HCPCS: 59025; G0463; 99213

== ENCOUNTER 2020-05-13 00:04 | Inpatient (IN) | payer OTHER ==
[2020-05-13] MEDS ORDERED: METHYLERGONOVINE 0.2 MG/ML 1 ML AMP IM PRN (00:31)
[2020-05-13] MEDS ORDERED: LIDOCAINE 0.5% (PF) 5 MG/ML (50 ML SDV) SQ PRN (00:31)
[2020-05-13] MEDS ORDERED: OXYTOCIN 10 UNIT/ML 1 ML VIAL IM PRN (00:31)
[2020-05-13] MEDS ORDERED: CARBOPROST TROMETHAMINE 250 MCG/ML 1 ML AMP IM PRN (00:31)
[2020-05-13] MEDS ORDERED: TERBUTALINE 1 MG/ML VIAL SQ PRN (00:31)
[2020-05-13] MEDS ORDERED: LACTATED RINGERS 1,000 ML IV SCH (00:45)
[2020-05-13 00:57] LABS: Basophils % (A) 0 %; Eosinophils # (A) 0.3 k/uL (0-0.7); Eosinophils % (A) 2 %; HCT 37.8 % (34.0-46.0); HGB 13.3 gm/dL (11.4-16.0); Lymphocytes # (A) 4.2 k/uL (1.0-4.8); Lymphocytes % (A) 33 %; MCH 30.7 pg (25.0-35.0); MCHC 35.3 g/dL (31.0-37.0); MCV 87.1 fL (80.0-100.0); Mean Platelet Volume 9.6; Monocytes # (A) 0.6 k/uL (0-1.0); Monocytes % (A) 5 %; Neutrophils # (A) 7.6 k/uL (1.3-7.7); Neutrophils % (A) 59 %; Platelet Count 169 k/uL (150-450); RBC 4.34 m/uL (3.80-5.40); RDW 12.6 % (11.5-15.5); WBC 12.9 k/uL (3.8-10.6)
[2020-05-13] MEDS ORDERED: HYDROCORTISONE 2.5% RECTAL CREAM 30 GM TUBE RECTAL PRN (04:14)
[2020-05-13] MEDS ORDERED: ACETAMINOPHEN TAB 325 MG TAB PO PRN (04:14)
[2020-05-13] MEDS ORDERED: LANOLIN CREAM 5 GM TUBE TOPICAL PRN (04:14)
[2020-05-13] MEDS ORDERED: SIMETHICONE 80 MG CHEWABLE PO PRN (04:14)
[2020-05-13] MEDS ORDERED: BENZOCAINE/MENTHOL SPRAY 1 GM/SPRAY AEROSOL TOPICAL PRN (04:14)
[2020-05-13] MEDS ORDERED: diphenhydrAMINE 25 MG CAP PO PRN (04:14)
[2020-05-13] MEDS ORDERED: diphenhydrAMINE 50 MG/ML 1 ML VIAL IVP PRN ×2 (04:14)
[2020-05-13] MEDS ORDERED: diphenhydrAMINE 50 MG CAP PO PRN (04:14)
[2020-05-13] MEDS ORDERED: ZOLPIDEM 5 MG TAB PO PRN (04:14)
--- NOTE | 2020-05-13 04:17 | P.HPOB ---
History of Present Illness H&P Date: 05/13/20 Chief Complaint: August at term: Active labor Patient is a 19-year-old at 38 weeks gestation arise in active labor dilated to 5 cm. She had spontaneous rupture membranes shortly before arriving to labor and delivery. Her course was unremarkable other than having Cameron Diggs her about 20 weeks. Otherwise she is feeling well and in active labor. Pertinent labs include a A+ blood type GBS is negative. A category 1 tracing is noted. On physical exam vital signs are stable and afebrile. Heart regular, lungs clear, extremities without pain. Gravid uterus is noted. Monitor shows contractions every 2-4 minutes. Assessment intrauterine term. Plan expect spontaneous vaginal delivery. Past Medical History Past Medical History: No Reported History Additional Past Medical History / Comment(s): Pneumonia History of Any Multi-Drug Resistant Organisms: None Reported Past Surgical History: No Surgical Hx Reported Past Anesthesia/Blood Transfusion Reactions: No Reported Reaction Past Psychological History: Depression Smoking Status: Current every day smoker Past Alcohol Use History: None Reported Past Drug Use History: None Reported - Past Family History Father Family Medical History: Hypertension Medications and Allergies Home Medications Medication Instructions Recorded Confirmed Type Pzh-Qawx-Lyzmo Acid 1 cap PO DAILY@1200 03/15/18 04/27/20 History [-U Capsule (formulary)] Allergies Allergy/AdvReac Type Severity Reaction Status Date / Time latex Allergy Rash/Hives Verified 05/13/20 00:31 pine nut Allergy Rapid Verified 05/13/20 00:31 Heart Rate tree nut Allergy Unknown Verified 04/27/20 15:18 venom-honey bee Allergy Rash/Hives Verified 05/13/20 00:31 [bee venom (honey bee)] artifical kang tree Allergy Rash/Hives Uncoded 05/13/20 00:31 Exam Osteopathic Statement: *. No significant issues noted on an osteopathic structural exam other than those noted in the History and Physical/Consult. Vital Signs Temp Pulse Resp BP Pulse Ox 05/13/20 01:19 98.0 F 78 20 128/81 05/13/20 01:09 96.9 F L 93 20 143/82 99 05/13/20 00:30 96.9 F L 93 16 143/82 98 Intake and Output 05/12/20 05/12/20 05/13/20 14:59 22:59 06:59 Other: Weight 71.214 kg Results Result Diagrams: 05/13/20 00:30 Abnormal Lab Results - Last 24 Hours (Table) 05/13/20 Range/Units 00:30 WBC 12.9 H (3.8-10.6) k/uL
--- NOTE | 2020-05-13 04:19 | P.PROBDLV ---
Vaginal Delivery Note - . Vaginal Delivery Note: Patient progressed complete and pushing with spontaneous vaginal delivery of a viable male over an intact perineum. The delivery did happen just as I was walking room with nurse in attendance. Once baby was fully delivered mouth nares were bulb suctioned and nursery personnel was present to assume care. Following approximately 1 minute the umbilical course clamped cut usual fashion and the placenta was delivered intact without difficulty. scores of 9 and 9 at one and 5 minutes respectively and the weight was 6 lbs. 3 oz. Both mother and baby are currently stable following delivery.
[2020-05-13] MEDS ORDERED: OXYTOCIN 30 UNITS/500 ML NS 30 UNIT in SALINE 1 500ML.BAG IV SCH (04:30)
[2020-05-13] MEDS: IBUPROFEN 600 MG TAB PO SCH ×3 (06:22→17:42)
[2020-05-13] MEDS: SENNOSIDES-DOCUSATE SODIUM 1 EACH TAB PO SCH ×2 (17:12→19:37)
[2020-05-14] MEDS: IBUPROFEN 600 MG TAB PO SCH ×2 (00:11→06:25)
[2020-05-14 06:17] LABS: Basophils % (A) 0 %; Eosinophils # (A) 0.3 k/uL (0-0.7); Eosinophils % (A) 3 %; HCT 34.7 % (34.0-46.0); Lymphocytes # (A) 4.3 k/uL (1.0-4.8); Lymphocytes % (A) 34 %; MCH 30.9 pg (25.0-35.0); MCHC 34.7 g/dL (31.0-37.0); Mean Platelet Volume 8.9; Monocytes # (A) 0.5 k/uL (0-1.0); Monocytes % (A) 4 %; Neutrophils # (A) 7.3 k/uL (1.3-7.7); Neutrophils % (A) 58 %; Platelet Count 172 k/uL (150-450); RDW 12.9 % (11.5-15.5); WBC 12.6 k/uL (3.8-10.6)
[2020-05-14 08:22] VITALS: BP 109/66; PULSE 71; RESP 16; TEMP 98.1
[2020-05-14] MEDS: SENNOSIDES-DOCUSATE SODIUM 1 EACH TAB PO SCH (09:28)
--- NOTE | 2020-05-14 10:54 | P.DS ---
Providers Date of admission: 05/13/20 00:25 Expected date of discharge: 05/14/20 Attending physician: Nirali Landry Primary care physician: Stated None Hospital Course: Patient is doing very well day 1. She is ambulating, voiding and tolerating her diet. She voices no complaints. Vital signs are stable and afebrile. She is requesting discharge home today. On physical exam her heart is regular, lungs are clear, extremities are without pain. Abdomen soft, uterus is firm, and lochia is reported light. Assessment day 1. Plan discharged home follow up with Dr. Landry in 6 weeks discharge instructions were otherwise reviewed and all questions are answered for her prior to her discharge. Patient Condition at Discharge: Good Plan - Discharge Summary New Discharge Prescriptions: New Ibuprofen [Motrin] 600 mg PO Q6HR PRN #30 tab PRN Reason: Pain No Action Zsp-Vufp-Rwynf Acid [-U Capsule (formulary)] 1 cap PO DAILY@1200 Discharge Medication List Tis-Sgjt-Kdzmp Acid [-U Capsule (formulary)] 1 cap PO DAILY@1200 03/15/18 [History] Ibuprofen [Motrin] 600 mg PO Q6HR PRN #30 tab 05/14/20 [Rx] Follow up Appointment(s)/Referral(s): Nirali Landry DO [Doctor of Osteopathic Medicine] - 6 Weeks Activity/Diet/Wound Care/Special Instructions: Lifting, limit stairs and driving, and pelvic rest. If any high temperatures, heavy bleeding, or severe pain call my office Discharge Disposition: HOME SELF-CARE
== END 2020-05-14 13:30 | disposition home or self-care (01) | DRG 807 ==
LOC: FBPOP 00:04 → 4FBP 00:25
PROVIDERS: ADMIT Obstetrics & Gynecology; ATTEND Obstetrics & Gynecology
PROC: 10E0XZZ Delivery of Products of Conception, External Approach (ICD-10-PCS; principal; 2020-05-13)
DX: O99.334 Smoking (tobacco) complicating childbirth (principal); Z37.0 Single live birth; F17.200 Nicotine dependence, unspecified, uncomplicated; Z82.49 Family history of ischemic heart disease and other diseases of the circulatory system; Z3A.38 38 weeks gestation of pregnancy
CPT/HCPCS: 85025; 86850; 86900; 86901

== ENCOUNTER 2020-07-10 06:14 | Day surgery (SDC) | payer OTHER ==
[2020-07-06 10:39] VITALS: BMI 32.7
--- NOTE | 2020-07-09 19:53 | P.HPOB ---
History of Present Illness H&P Date: 07/09/20 Chief Complaint: Family planning This is a 20 y.o. female, 3, para 3, who presents for laproscopic bilateral tubal ligation via fulgaration for family planning. She recently delivered her last child and wishes permanent sterilization. She has signed papers more than 30 days ago. OB Hx: . 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 Review of Systems Constitutional: Denies chills, Denies fever Eyes: denies blurred vision, denies pain Ears, nose, mouth and throat: Denies headache, Denies sore throat Cardiovascular: Denies chest pain, Denies shortness of breath Respiratory: Denies cough Gastrointestinal: Denies abdominal pain, Denies diarrhea, Denies nausea, Denies vomiting Genitourinary: Denies dysuria, Denies hematuria Musculoskeletal: Denies myalgias Integumentary: Denies pruritus, Denies rash Neurological: Denies numbness, Denies weakness Psychiatric: Reports anxiety, Reports depression Past Medical History Past Medical History: No Reported History Additional Past Medical History / Comment(s): Pneumonia hx History of Any Multi-Drug Resistant Organisms: None Reported Past Surgical History: No Surgical Hx Reported Past Anesthesia/Blood Transfusion Reactions: No Reported Reaction Past Psychological History: Anxiety, Depression Smoking Status: Current every day smoker Past Alcohol Use History: None Reported Past Drug Use History: None Reported - Past Family History Father Family Medical History: Hypertension Medications and Allergies Home Medications Medication Instructions Recorded Confirmed Type Acetaminophen Tab [Tylenol] 325 mg PO Q4H PRN 07/06/20 07/10/20 History Allergies Allergy/AdvReac Type Severity Reaction Status Date / Time latex Allergy Rash/Hives Verified 07/06/20 10:34 pine nut Allergy Rapid Verified 07/06/20 10:34 Heart Rate tree nut Allergy Unknown Verified 07/06/20 10:34 venom-honey bee Allergy Rash/Hives Verified 07/06/20 10:34 [bee venom (honey bee)] artifical kang tree Allergy Rash/Hives Uncoded 07/06/20 10:34 Exam Osteopathic Statement: *. No significant issues noted on an osteopathic structural exam other than those noted in the History and Physical/Consult. HEENT: within normal limits Heart: regular rate and rhythm Lungs: clear to auscultation bilaterally Abdomen: Pelvic: uterus small, anteverted, mildly tender, with no adnexal masses or tenderness. Extremities: neg. Stephanie's Assessment and Plan (1) Family planning Current Visit: No Status: Acute Code(s): Z30.09 - ENCOUNTER FOR OT GENERAL CNSL AND ADVICE ON CONTRACEPTION SNOMED Code(s): 346096039 Plan: Proceed with laparoscopic bilateral tubal ligation via fulgaration. I have discussed the risks, benefits, and alternative therapies for the above- mentioned procedure and for both sedation/anesthesia as well as necessary blood products administration, if indicated, as they pertain to this patient. The patient has indicated her understanding and acceptance of the risks and procedures discussed.
[~2020-07-10 06:14] MED LIST: Pre Op ABX Message 1 EACH MISC MISCELLANE ONE
[2020-07-10] MEDS ORDERED: DEXAMETHASONE SOD PHOSPHATE 4 MG/ML 1 ML VIAL IV ONE (06:25)
[2020-07-10] MEDS ORDERED: LACTATED RINGERS 1,000 ML IV SCH (06:25)
[2020-07-10] MEDS ORDERED: ONDANSETRON 4 MG/2 ML VIAL IVP ONE (06:25)
[2020-07-10] MEDS ORDERED: LACTATED RINGERS 1,000 ML IV ONE (06:43)
[2020-07-10] MEDS ORDERED: MIDAZOLAM 2 MG/2 ML VIAL ONE (07:25)
[2020-07-10] MEDS ORDERED: PROPOFOL 10 MG/ML 20 ML VIAL IV ONE (07:25)
[2020-07-10] MEDS ORDERED: GLYCOPYRROLATE 0.2 MG/ML 2 ML VIAL ONE (07:25)
[2020-07-10] MEDS ORDERED: KETOROLAC 15 MG/ML 1 ML VIAL ONE (07:25)
[2020-07-10] MEDS ORDERED: LIDOCAINE 1% INJ 10MG/ML (20 ML MDV) ONE (07:25)
[2020-07-10] MEDS ORDERED: NEOSTIGMINE 1 MG/ML 10 ML VIAL ONE (07:25)
[2020-07-10] MEDS ORDERED: ROCURONIUM 10 MG/ML (5 ML VIAL) IV ONE (07:25)
[2020-07-10] MEDS ORDERED: SUCCINYLCHOLINE CHLORIDE 100 MG/5 ML SYR IV ONE (07:25)
[2020-07-10] MEDS ORDERED: fentaNYL (PF) 50 MCG/ML 2 ML AMP ONE (07:25)
[2020-07-10] MEDS ORDERED: BUPIVACAINE (PF) 0.25% 30 ML VIAL SQ ONE ×2 (07:57)
--- NOTE | 2020-07-10 08:14 | P.OP ---
Date of Procedure: 07/10/20 Preoperative Diagnosis: Family planning Postoperative Diagnosis: Same Procedure(s) Performed: Laparoscopic bilateral tubal ligation via fulguration Anesthesia: BALAJI Surgeon: Nirali Landry Estimated Blood Loss (ml): 10 Pathology: none sent Condition: stable Disposition: same day Indications for Procedure: This is a 20 y.o. female, 3, para 3, who presents for laproscopic bilateral tubal ligation via fulgaration for family planning. She recently delivered her last child and wishes permanent sterilization. She has signed papers more than 30 days ago. Operative Findings: Uterus is retroverted. Both tubes and ovaries appeared normal. There was a small follicular cyst on the left ovary. Appendix is visualized and appears normal. Liver edge appears normal. Description of Procedure: The patient is taken to the operating room where she is placed in the dorsal lithotomy position. She is prepped and draped in the normal sterile fashion. Examination is performed under anesthesia. Uterus is found to be in a ret roverted position. No adnexal masses were palpated. Next a bivalve speculum was placed in the patient's vagina. A single-tooth tenaculum was used to grasp the anterior lip of the cervix. The uterus was sounded to 8 cm. The kroner uterine manipulator was then inserted through the cervix and the balloon was inflated. The single-tooth tenaculum is removed speculum was removed gloves were changed and attention was turned to the abdomen. A small stab incision was made with a scalpel in the infraumbilical fold. A towel clip was placed above the umbilicus for retraction. A 5 mm disposable bladeless trocar was then inserted into the peritoneal cavity under direct visualization. Once inside, pneumoperitoneum was achieved with CO2 gas. The insert was removed and the camera was placed. Intraperitoneal placement was confirmed. No bleeding was noted. Next the patient was placed in Trendelenburg position. A small stab incision was made suprapubically and a 5 mm disposable bladeless trocar was inserted into the peritoneal cavity under direct visualization. Once inside pelvic contents were inspected. Next a bipolar Kleppinger instrument was placed through the inferior trocar and the midportion of each tube was brought away from other structures and completely fulgurated on approximate 2-3 cm segment of each tube. Excellent hemostasis was noted. Pictures were taken. Pneumope ritoneum was released after the inferior trocar was removed under direct visualization. The upper trocar was then removed. The skin incisions were then closed with 4-0 Vicryl suture in a subcuticular fashion. Incisions were then injected with quarter percent Marcaine. Approximately 7 mL were used. Next the kroner uterine manipulator was removed. Minimal bleeding was noted. All sponge and needle counts are correct. The patient is then taken to recovery room in stable condition.
[2020-07-10 08:35] VITALS: TEMP 97.4
[2020-07-10] MEDS: HYDROmorphone 0.5 MG/0.5 ML SYRINGE IVP PRN ×2 (08:38→08:44)
[2020-07-10 09:13] VITALS: RESP 16
[2020-07-10 09:31] VITALS: BP 102/64; PULSE 63
== END 2020-07-10 09:43 | disposition home or self-care (01) ==
LOC: OR 06:14
PROVIDERS: ATTEND Obstetrics & Gynecology
DX: Z30.2 Encounter for sterilization (principal); N83.02 Follicular cyst of left ovary; F41.9 Anxiety disorder, unspecified; F32.9 Major depressive disorder, single episode, unspecified; F17.200 Nicotine dependence, unspecified, uncomplicated; Z91.030 Bee allergy status; Z91.040 Latex allergy status; Z91.018 Allergy to other foods; Z91.09 Other allergy status, other than to drugs and biological substances; Z87.01 Personal history of pneumonia (recurrent); Z82.49 Family history of ischemic heart disease and other diseases of the circulatory system
CPT/HCPCS: 81025; 58670; J2250; J1100; J2710; J2405; J2001; J3010; J1885; J0330; J2704; J1170

== ENCOUNTER 2020-11-02 08:14 | Emergency (ER) | payer OTHER ==
[2020-11-02 08:23] VITALS: TEMP 98.3
[2020-11-02] MEDS ORDERED: SODIUM CHLORIDE 0.9% 1,000 ML IV STA (08:31)
[2020-11-02] MEDS ORDERED: MORPHINE SULFATE 4 MG/ML SYRINGE IV STA (08:31)
[2020-11-02 09:16] LABS: ALT 20 U/L (4-34); AST 26 U/L (14-36); African American GFR (CKD) >90 (>60 ml/min/1.73 sqM); Albumin 4.4 g/dL (3.5-5.0); Alkaline Phosphatase 61 U/L (38-126); Amylase 88 U/L (30-110); Anion Gap 6 mmol/L; Blood Urea Nitrogen 13 mg/dL (7-17); Calcium 9.4 mg/dL (8.4-10.2); Carbon Dioxide 23 mmol/L (22-30); Chloride 108 mmol/L (98-107); Glucose 97 mg/dL (74-99); Lipase 144 U/L (23-300); Non-African American GFR(CKD) >90 (>60 ml/min/1.73 sqM); Potassium 4.8 mmol/L (3.5-5.1); Sodium 137 mmol/L (137-145); Total Bilirubin 0.2 mg/dL (0.2-1.3); Total Protein 6.8 g/dL (6.3-8.2)
[2020-11-02 09:26] LABS: Basophils # (A) 0.1 k/uL (0-0.2); Basophils % (A) 1 %; Eosinophils # (A) 0.5 k/uL (0-0.7); Eosinophils % (A) 6 %; HCT 42.8 % (34.0-46.0); HGB 15.2 gm/dL (11.4-16.0); Lymphocytes % (A) 38 %; MCH 30.9 pg (25.0-35.0); MCHC 35.5 g/dL (31.0-37.0); MCV 87.1 fL (80.0-100.0); Mean Platelet Volume 8.1; Monocytes # (A) 0.3 k/uL (0-1.0); Monocytes % (A) 4 %; Neutrophils # (A) 3.7 k/uL (1.3-7.7); Neutrophils % (A) 48 %; Platelet Count 210 k/uL (150-450); RBC 4.91 m/uL (3.80-5.40); RDW 13.5 % (11.5-15.5); WBC 7.7 k/uL (3.8-10.6)
[2020-11-02 09:32] LABS: Appearance,Urine Clear (Clear); Bilirubin,Urine Negative (Negative); Blood,Urine Negative (Negative); Color,Urine Yellow; Glucose,Urine (UA) Negative (Negative); Ketones,Urine Negative (Negative); Leukocyte Esterase,Urine Negative (Negative); Nitrite,Urine Negative (Negative); PH, Urine 5.5 (5.0-8.0); Protein,Urine Negative (Negative); Urobilinogen,Urine <2.0 mg/dL (<2.0)
--- NOTE | 2020-11-02 09:32 | CT ---
EXAMINATION TYPE: CT abdomen pelvis w con DATE OF EXAM: 11/02/2020 COMPARISON: CT 07/24/2015 HISTORY: LLQ pain radiating into left hip CT DLP: 981.5 mGycm Automated exposure control for dose reduction was used. TECHNIQUE: Helical acquisition of images from the lung bases through the pelvis have been completed. CONTRAST: Performed without Oral Contrast and with IV Contrast, patient injected with 100 ml mL of Isovue 300. FINDINGS: There is an umbilical hernia containing fat. LUNG BASES: Minimal dependent atelectatic changes, no pleural or pericardial effusion. AORTA: No significant abnormality is appreciated. LIVER/GB: No the liver is enlarged, gallbladder is within normal limits. PANCREAS: No significant abnormality is seen. SPLEEN: No significant abnormality is seen. ADRENALS: No significant abnormality is seen. KIDNEYS: No significant abnormality is seen. REPRODUCTIVE ORGANS: Mild bulky appearance of the left ovary measuring 3.5 x 3.6 x 3.6 cm likely with associated follicles, right ovary and uterus are within normal limits BOWEL: No significant abnormality is seen. The appendix is normal. FREE AIR: No Free Air visible. ASCITES: Minimal fluid in the pelvis is likely physiologic. PELVIC ADENOPATHY: None visualized. RETROPERITONEAL ADENOPATHY: No Retroperitoneal Adenopathy visible. URINARY BLADDER: No significant abnormality is seen. OSSEOUS STRUCTURES: Mild disc bulge present L5-S1. IMPRESSION: HEPATOMEGALY. PROBABLE PHYSIOLOGIC CHANGES WITHIN THE PELVIS. MILD DISC BULGE SUSPECTED L5-S1 . MAC L APPENDIX.
--- NOTE | 2020-11-02 09:54 | ED ---
Abdominal Pain HPI - General Chief Complaint: Abdominal Pain Stated Complaint: Abd pain Time Seen by Provider: 11/02/20 08:25 Source: patient, RN notes reviewed Mode of arrival: ambulatory Limitations: no limitations - History of Present Illness Initial Comments: Patient is a 20-year-old female that presents to the emergency department complaining of left lower quadrant pain. She notes that she had her tubes tied earlier this year. She notes that the pain started approximately yesterday around 12. She notes that she tried to push through at work and she notes that the pain today was greater so she came in for evaluation. She denied any history of ulcerative colitis Crohn's diverticulitis or diverticulosis. She did note that she has had a history of ovarian cyst and this feels very similar to previous episodes. She denied any other issues or complaints at this time she was otherwise a well-appearing 20-year-old female no apparent distress or pain. She denied any chest pain first breath headache nausea vomiting diarrhea constipation fever fatigue chills. - Related Data Home Medications Medication Instructions Recorded Confirmed Acetaminophen Tab [Tylenol] 325 mg PO Q4H PRN 07/06/20 07/10/20 Previous Rx's Medication Instructions Recorded HYDROcodone/APAP 5-325MG [[place] 1 tab PO Q6HR PRN 3 Days #12 tab 07/10/20 5-325] Allergies Allergy/AdvReac Type Severity Reaction Status Date / Time latex Allergy Rash/Hives Verified 11/02/20 08:21 pine nut Allergy Rapid Verified 11/02/20 08:21 Heart Rate tree nut Allergy Unknown Verified 11/02/20 08:21 venom-honey bee Allergy Rash/Hives Verified 11/02/20 08:21 [bee venom (honey bee)] artifical kang tree Allergy Rash/Hives Uncoded 07/06/20 10:34 Review of Systems ROS Statement: Those systems with pertinent positive or pertinent negative responses have been documented in the HPI. ROS Other: All systems not noted in ROS Statement are negative. Past Medical History Past Medical History: No Reported History Additional Past Medical History / Comment(s): Pneumonia hx, ovarian cyst History of Any Multi-Drug Resistant Organisms: None Reported Past Surgical History: Tubal Ligation Past Anesthesia/Blood Transfusion Reactions: No Reported Reaction Past Psychological History: Anxiety, Depression Smoking Status: Current every day smoker Past Alcohol Use History: None Reported Past Drug Use History: None Reported - Past Family History Father Family Medical History: Hypertension General Exam Limitations: no limitations General appearance: alert, in no apparent distress Head exam: Present: atraumatic, normocephalic, normal inspection Eye exam: Present: normal appearance, PERRL, EOMI. Absent: scleral icterus, conjunctival injection, periorbital swelling Neck exam: Present: normal inspection Respiratory exam: Present: normal lung sounds bilaterally. Absent: respiratory distress, wheezes, rales, rhonchi, stridor Cardiovascular Exam: Present: regular rate, normal rhythm, normal heart sounds. Absent: systolic murmur, diastolic murmur, rubs, gallop, clicks GI/Abdominal exam: Present: soft, tenderness (Left lower quadrant.), normal bowel sounds. Absent: distended, guarding, rebound, rigid Extremities exam: Present: normal inspection, full ROM, normal capillary refill. Absent: tenderness, pedal edema, joint swelling, calf tenderness Neurological exam: Present: alert, oriented X3 Psychiatric exam: Present: normal affect, normal mood Skin exam: Present: warm, dry, intact, normal color. Absent: rash Course Vital Signs 11/02/20 08:21 Temperature 98.3 F Pulse Rate 95 Respiratory 18 Rate Blood Pressure 131/90 O2 Sat by Pulse 95 Oximetry Medical Decision Making - Medical Decision Making 20-year-old female complaining of left lower quadrant pain, history of having her tubes tied. Labs, CT abdomen pelvis, transvaginal ultrasound, 1 L normal fluids, 4 mg morphine ordered. Labs unremarkable. CT of the abdomen pelvis negative for any acute process. Ultrasound shows left ovarian cyst. Given imaging, labs and physical presentation patient most likely is having ovarian cyst pain. Case discussed with Dr. Melendez, patient can discharge home with follow-up to primary care [facility]. - Lab Data Result diagrams: 11/02/20 08:51 11/02/20 08:51 Lab Results 11/02/20 11/02/20 11/02/20 Range/Units 08:51 08:51 08:51 WBC 7.7 (3.8-10.6) k/uL RBC 4.91 (3.80-5.40) m/uL Hgb 15.2 (11.4-16.0) gm/dL Hct 42.8 (34.0-46.0) % MCV 87.1 (80.0-100.0) fL MCH 30.9 (25.0-35.0) pg MCHC 35.5 (31.0-37.0) g/dL RDW 13.5 (11.5-15.5) % Plt Count 210 (150-450) k/uL MPV 8.1 Neutrophils % 48 % Lymphocytes % 38 % Monocytes % 4 % Eosinophils % 6 % Basophils % 1 % Neutrophils # 3.7 (1.3-7.7) k/uL Lymphocytes # 3.0 (1.0-4.8) k/uL Monocytes # 0.3 (0-1.0) k/uL Eosinophils # 0.5 (0-0.7) k/uL Basophils # 0.1 (0-0.2) k/uL Sodium (137-145) mmol/L Potassium (3.5-5.1) mmol/L Chloride (98-107) mmol/L Carbon Dioxide (22-30) mmol/L Anion Gap mmol/L BUN (7-17) mg/dL Creatinine (0.52-1.04) mg/dL Est GFR (CKD-EPI)AfAm (>60 ml/min/1.73 sqM) Est GFR (CKD-EPI)NonAf (>60 ml/min/1.73 sqM) Glucose (74-99) mg/dL Plasma Lactic Acid Rick (0.7-2.0) mmol/L Calcium (8.4-10.2) mg/dL Total Bilirubin (0.2-1.3) mg/dL AST (14-36) U/L ALT (4-34) U/L Alkaline Phosphatase (38-126) U/L Total Protein (6.3-8.2) g/dL Albumin (3.5-5.0) g/dL Amylase (30-110) U/L Lipase (23-300) U/L Urine Color Yellow Urine Appearance Clear (Clear) Urine pH 5.5 (5.0-8.0) Ur Specific [place] 1.020 (1.001-1.035) Urine Protein Negative (Negative) Urine Glucose (UA) Negative (Negative) Urine Ketones Negative (Negative) Urine Blood Negative (Negative) Urine Nitrite Negative (Negative) Urine Bilirubin Negative (Negative) Urine Urobilinogen <2.0 (<2.0) mg/dL Ur Leukocyte Esterase Negative (Negative) Urine HCG, Qual Not Detected (Not Detectd) 11/02/20 11/02/20 Range/Units 08:51 08:51 WBC (3.8-10.6) k/uL RBC (3.80-5.40) m/uL Hgb (11.4-16.0) gm/dL Hct (34.0-46.0) % MCV (80.0-100.0) fL MCH (25.0-35.0) pg MCHC (31.0-37.0) g/dL RDW (11.5-15.5) % Plt Count (150-450) k/uL MPV Neutrophils % % Lymphocytes % % Monocytes % % Eosinophils % % Basophils % % Neutrophils # (1.3-7.7) k/uL Lymphocytes # (1.0-4.8) k/uL Monocytes # (0-1.0) k/uL Eosinophils # (0-0.7) k/uL Basophils # (0-0.2) k/uL Sodium 137 (137-145) mmol/L Potassium 4.8 (3.5-5.1) mmol/L Chloride 108 H (98-107) mmol/L Carbon Dioxide 23 (22-30) mmol/L Anion Gap 6 mmol/L BUN 13 (7-17) mg/dL Creatinine 0.55 (0.52-1.04) mg/dL Est GFR (CKD-EPI)AfAm >90 (>60 ml/min/1.73 sqM) Est GFR (CKD-EPI)NonAf >90 (>60 ml/min/1.73 sqM) Glucose 97 (74-99) mg/dL Plasma Lactic Acid Rick 1.4 (0.7-2.0) mmol/L Calcium 9.4 (8.4-10.2) mg/dL Total Bilirubin 0.2 (0.2-1.3) mg/dL AST 26 (14-36) U/L ALT 20 (4-34) U/L Alkaline Phosphatase 61 (38-126) U/L Total Protein 6.8 (6.3-8.2) g/dL Albumin 4.4 (3.5-5.0) g/dL Amylase 88 (30-110) U/L Lipase 144 (23-300) U/L Urine Color Urine Appearance (Clear) Urine pH (5.0-8.0) Ur Specific [place] (1.001-1.035) Urine Protein (Negative) Urine Glucose (UA) (Negative) Urine Ketones (Negative) Urine Blood (Negative) Urine Nitrite (Negative) Urine Bilirubin (Negative) Urine Urobilinogen (<2.0) mg/dL Ur Leukocyte Esterase (Negative) Urine HCG, Qual (Not Detectd) - Radiology Data Radiology results: report reviewed, image reviewed CT the abdomen and pelvis: Hepatomegaly. Probable physiologic changes within the pelvis. Mild disc bulge suspected L5-S1. Normal appendix. Transvaginal ultrasound: Small left ovarian cyst. Disposition Clinical Impression: Abdominal pain, Other ovarian cyst, left side Disposition: HOME SELF-CARE Condition: Stable Instructions (If sedation given, give patient instructions): Abdominal Pain (ED) Additional Instructions: Please return to the Emergency Department if symptoms worsen or any other concerns. Follow-up with primary care in 1-2 days. Take Tylenol and Motrin as needed for pain. Follow-up with [facility] as planned. Is patient prescribed a controlled substance at d/c from ED?: No Referrals: None,Stated [Primary Care Provider] - 1-2 days Time of Disposition: 10:29
--- NOTE | 2020-11-02 10:17 | US ---
EXAMINATION TYPE: US transvaginal DATE OF EXAM: 11/02/2020 COMPARISON: CT 2020 CLINICAL HISTORY: LLQ pain. Left pelvic pain x 2 days, N/V, history of tubal ligation, history of ova иван cysts TECHNIQUE: Transvaginal ER exam Date of LMP: 10/22/2020 EXAM MEASUREMENTS: Uterus: 7.9 x 3.6 x 4.5 cm Endometrial Stripe: 0.6 cm Right Ovary: 2.2 x 1.6 x 1.6 cm Left Ovary: 3.7 x 2.3 x 2.7 cm 1. Uterus: anteverted 2. Endometrium: wnl 3. Right Ovary: multiple follicles 4. Left Ovary: multiple follicles with largest measuring 1.1cm Spectral, color and waveform doppler imaging shows good arterial and venous flow within the ovaries ; there is no evidence for ovarian torsion. 5. Bilateral Adnexa: wnl 6. Posterior cul-de-sac: small amount of free IMPRESSION: 1. Small left ovarian cyst
[2020-11-02 10:39] VITALS: BP 121/78; PULSE 72; RESP 16
== END 2020-11-02 10:40 | disposition home or self-care (01) ==
LOC: EC 08:14
DX: N83.292 Other ovarian cyst, left side (principal); F17.200 Nicotine dependence, unspecified, uncomplicated; Z82.49 Family history of ischemic heart disease and other diseases of the circulatory system
CPT/HCPCS: 36415; 80053; 82150; 83605; 83690; 85025; 81003; 81025; 93975; 76830; 74177; 96374; 96361; 99284; J2270; Q9967

== ENCOUNTER 2020-11-03 13:37 | Emergency (ER) | payer OTHER ==
[2020-11-03] MEDS ORDERED: diphenhydrAMINE 50 MG/ML 1 ML VIAL IVP STA (14:23)
[2020-11-03] MEDS ORDERED: FAMOTIDINE 20 MG/2 ML VIAL IV STA (14:23)
[2020-11-03] MEDS ORDERED: DEXAMETHASONE SOD PHOSPHATE 10 MG/ML 1 ML VIAL IV STA (14:23)
--- NOTE | 2020-11-03 14:26 | ED ---
General Adult HPI - General Chief complaint: Allergic Reaction Stated complaint: Allergic Reaction Bee Sting Time Seen by Provider: 11/03/20 13:51 Source: patient Mode of arrival: wheelchair Limitations: no limitations - History of Present Illness Initial comments: Dictation was produced using [employer]ai dictation software. please excuse any grammatical, word or spelling errors. Chief Complaint: 20-year-old female who has had severe ALLERGIC reactions to bee stings in the past presents with a bee sting. History of Present Illness: 20-year-old female she was stung by yellow jacket earlier today. Patient supposed be prescribed an EpiPen however can't afford them. Patient states she the end experiencing some throat scratchiness and throat swelling. She complains of abdominal pain. No nausea. She does feel slightly lightheaded. The ROS documented in this emergency department record has been reviewed and confirmed by me. Those systems with pertinent positive or negative responses have been documented in the HPI. All other systems are other negative and/or noncontributory. PHYSICAL EXAM: General Impression: Alert and oriented x3, not in acute distress HEENT: Normocephalic atraumatic, extra-ocular movements intact, pupils equal and reactive to light bilaterally, mucous membranes moist. Cardiovascular: Heart regular rate and rhythm Chest: Able to complete full sentences, no retractions, no tachypnea, no wheezing with auscultation Abdomen: abdomen soft, non-tender, non-distended, no organomegaly Musculoskeletal: Pulses present and equal in all extremities, no peripheral edema Motor: no focal deficits noted Neurological: CN II-XII grossly intact, no focal motor or sensory deficits noted Skin: No break rash, there is a localized reaction over her left anterior chest where she states that she was allegedly stung by a yellow jacket Psych: Normal affect and mood ED course: 20 y Old female who has history of 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 She does have airway symptoms. Clinical criteria met for epinephrine administration. Vital signs upon arrival are within acceptable limits. Patient observed in emergency department for approximately 2 hours and 30 minutes. She is reevaluated at the bedside at 4 PM final be stable medical condition. Patient given prescription for EpiPen. She'll be discharged. She is told to avoid bees. - Related Data Previous Rx's Medication Instructions Recorded EPINEPHrine (Auto Inject) [Epipen] 0.3 mg IM ONCE PRN #2 each 11/03/20 Allergies Allergy/AdvReac Type Severity Reaction Status Date / Time latex Allergy Rash/Hives Verified 11/03/20 14:43 pine nut Allergy Rapid Verified 11/03/20 14:43 Heart Rate tree nut Allergy Unknown Verified 11/03/20 14:43 venom-honey bee Allergy Rash/Hives Verified 11/03/20 14:43 [bee venom (honey bee)] artifical kang tree Allergy Rash/Hives Uncoded 11/03/20 13:43 Review of Systems ROS Statement: Those systems with pertinent positive or pertinent negative responses have been documented in the HPI. ROS Other: All systems not noted in ROS Statement are negative. Past Medical History Past Medical History: No Reported History Additional Past Medical History / Comment(s): Pneumonia hx, ovarian cyst History of Any Multi-Drug Resistant Organisms: None Reported Past Surgical History: Tubal Ligation Past Anesthesia/Blood Transfusion Reactions: No Reported Reaction Past Psychological History: Anxiety, Depression Smoking Status: Current every day smoker Past Alcohol Use History: None Reported Past Drug Use History: None Reported - Past Family History Father Family Medical History: Hypertension General Exam Limitations: no limitations Course Vital Signs 11/03/20 11/03/20 11/03/20 13:41 14:44 15:52 Temperature 97.9 F 98.2 F Pulse Rate 82 70 78 Respiratory 16 18 18 Rate Blood Pressure 127/68 129/81 125/84 O2 Sat by Pulse 98 100 100 Oximetry Medical Decision Making - Lab Data Lab Results 11/03/20 Range/Units 14:35 Urine HCG, Qual Not Detected (Not Detectd) Disposition Clinical Impression: Bee sting reaction Disposition: HOME SELF-CARE Condition: Fair Instructions (If sedation given, give patient instructions): Anaphylaxis (ED) Prescriptions: EPINEPHrine (Auto Inject) [Epipen] 0.3 mg IM ONCE PRN #2 each PRN Reason: Anaphylaxis Is patient prescribed a controlled substance at d/c from ED?: No Referrals: None,Stated [Primary Care Provider] - 1-2 days
[2020-11-03 14:48] VITALS: RESP 18
[2020-11-03 15:53] VITALS: BP 125/84; PULSE 78; TEMP 98.2
== END 2020-11-03 16:19 | disposition home or self-care (01) ==
LOC: EC 13:37
DX: T63.441A Toxic effect of venom of bees, accidental (unintentional), initial encounter (principal); F41.9 Anxiety disorder, unspecified; F32.9 Major depressive disorder, single episode, unspecified; F17.200 Nicotine dependence, unspecified, uncomplicated
CPT/HCPCS: 81025; 99284; 96374; 96375 ×2; 96372; J0171; J1200; J1100

== ENCOUNTER 2021-02-04 09:17 | Emergency (ER) | payer OTHER ==
[2021-02-04 09:33] VITALS: BP 130/83; PULSE 96; RESP 18; TEMP 98.3
--- NOTE | 2021-02-04 09:35 | ED ---
General Adult HPI - General Chief complaint: Urogenital Stated complaint: Poss Ovarian Cyst Time Seen by Provider: 02/04/21 09:34 Source: patient, RN notes reviewed Mode of arrival: ambulatory Limitations: no limitations - History of Present Illness Initial comments: 20-year-old female presents emergency Department chief complaint of right lower pelvic pain. Patient states she has a history of ovarian cysts and feels very similar. Patient states started last night has progressed and worsened. Patient admits nausea no vomiting no diarrhea no constipation or decreased appetite no reported fevers or chills no prior abdominal surgeries. Denies any chance . Patient has no excessive vaginal bleeding vaginal discharge. Patient states pain radiates into her midabdomen denies any flank pain no dysuria no hematuria. - Related Data Home Medications Medication Instructions Recorded Confirmed Acetaminophen Tab [Tylenol Tab] 1,000 mg PO Q6HR PRN 02/04/21 02/04/21 EPINEPHrine (Auto Inject) [Epipen] 0.3 mg IM BID PRN 02/04/21 02/04/21 Previous Rx's Medication Instructions Recorded Ibuprofen [Motrin] 600 mg PO Q8HR PRN #20 tab 02/04/21 Allergies Allergy/AdvReac Type Severity Reaction Status Date / Time latex Allergy Rash/Hives Verified 02/04/21 13:04 pine nut Allergy Rapid Verified 02/04/21 13:04 Heart Rate tree nut Allergy Unknown Verified 02/04/21 13:04 venom-honey bee Allergy Rash/Hives Verified 02/04/21 13:04 [bee venom (honey bee)] artifical kang tree Allergy Rash/Hives Uncoded 02/04/21 13:04 Review of Systems ROS Statement: Those systems with pertinent positive or pertinent negative responses have been documented in the HPI. ROS Other: All systems not noted in ROS Statement are negative. Past Medical History Past Medical History: No Reported History Additional Past Medical History / Comment(s): Pneumonia hx, ovarian cyst History of Any Multi-Drug Resistant Organisms: None Reported Past Surgical History: Tubal Ligation Past Anesthesia/Blood Transfusion Reactions: No Reported Reaction Past Psychological History: Anxiety, Depression Smoking Status: Current every day smoker Past Alcohol Use History: None Reported Past Drug Use History: None Reported - Past Family History Father Family Medical History: Hypertension General Exam Limitations: no limitations General appearance: alert, in no apparent distress Head exam: Present: atraumatic, normocephalic, normal inspection Eye exam: Present: normal appearance, PERRL, EOMI. Absent: scleral icterus, conjunctival injection, periorbital swelling Respiratory exam: Present: normal lung sounds bilaterally. Absent: respiratory distress, wheezes, rales, rhonchi, stridor Cardiovascular Exam: Present: regular rate, normal rhythm, normal heart sounds. Absent: systolic murmur, diastolic murmur, rubs, gallop, clicks GI/Abdominal exam: Present: soft, tenderness (Right lower quadrant), normal bowel sounds. Absent: distended, guarding, rebound, rigid Back exam: Absent: CVA tenderness (R), CVA tenderness (L) Neurological exam: Present: alert Skin exam: Present: warm, dry, intact, normal color. Absent: rash Course Vital Signs 02/04/21 09:31 Temperature 98.3 F Pulse Rate 96 Respiratory 18 Rate Blood Pressure 130/83 O2 Sat by Pulse 98 Oximetry Medical Decision Making - Medical Decision Making Patient's labs and urinalysis unremarkable. Patient we discharged in stable condition return parameters discussed. - Lab Data Result diagrams: 02/04/21 11:45 02/04/21 11:45 Lab Results 02/04/21 02/04/21 02/04/21 Range/Units 11:45 11:45 12:08 WBC 10.5 (3.8-10.6) k/uL RBC 5.02 (3.80-5.40) m/uL Hgb 14.9 (11.4-16.0) gm/dL Hct 43.1 (34.0-46.0) % MCV 85.9 (80.0-100.0) fL MCH 29.7 (25.0-35.0) pg MCHC 34.6 (31.0-37.0) g/dL RDW 12.8 (11.5-15.5) % Plt Count 187 (150-450) k/uL MPV 8.3 Neutrophils % 59 % Lymphocytes % 32 % Monocytes % 4 % Eosinophils % 3 % Basophils % 0 % Neutrophils # 6.2 (1.3-7.7) k/uL Lymphocytes # 3.4 (1.0-4.8) k/uL Monocytes # 0.4 (0-1.0) k/uL Eosinophils # 0.3 (0-0.7) k/uL Basophils # 0.0 (0-0.2) k/uL Sodium 139 (137-145) mmol/L Potassium 4.4 (3.5-5.1) mmol/L Chloride 107 (98-107) mmol/L Carbon Dioxide 21 L (22-30) mmol/L Anion Gap 11 mmol/L BUN 9 (7-17) mg/dL Creatinine 0.51 L (0.52-1.04) mg/dL Est GFR (CKD-EPI)AfAm >90 (>60 ml/min/1.73 sqM) Est GFR (CKD-EPI)NonAf >90 (>60 ml/min/1.73 sqM) Glucose 96 (74-99) mg/dL Calcium 9.6 (8.4-10.2) mg/dL Total Bilirubin 0.3 (0.2-1.3) mg/dL AST 22 (14-36) U/L ALT 27 (4-34) U/L Alkaline Phosphatase 74 (38-126) U/L Total Protein 7.3 (6.3-8.2) g/dL Albumin 4.6 (3.5-5.0) g/dL Lipase 87 (23-300) U/L Urine Color Yellow Urine Appearance Clear (Clear) Urine pH 7.0 (5.0-8.0) Ur Specific [place] 1.024 (1.001-1.035) Urine Protein Negative (Negative) Urine Glucose (UA) Negative (Negative) Urine Ketones Negative (Negative) Urine Blood Negative (Negative) Urine Nitrite Negative (Negative) Urine Bilirubin Negative (Negative) Urine Urobilinogen <2.0 (<2.0) mg/dL Ur Leukocyte Esterase Negative (Negative) Urine HCG, Qual (Not Detectd) 02/04/21 Range/Units 12:08 WBC (3.8-10.6) k/uL RBC (3.80-5.40) m/uL Hgb (11.4-16.0) gm/dL Hct (34.0-46.0) % MCV (80.0-100.0) fL MCH (25.0-35.0) pg MCHC (31.0-37.0) g/dL RDW (11.5-15.5) % Plt Count (150-450) k/uL MPV Neutrophils % % Lymphocytes % % Monocytes % % Eosinophils % % Basophils % % Neutrophils # (1.3-7.7) k/uL Lymphocytes # (1.0-4.8) k/uL Monocytes # (0-1.0) k/uL Eosinophils # (0-0.7) k/uL Basophils # (0-0.2) k/uL Sodium (137-145) mmol/L Potassium (3.5-5.1) mmol/L Chloride (98-107) mmol/L Carbon Dioxide (22-30) mmol/L Anion Gap mmol/L BUN (7-17) mg/dL Creatinine (0.52-1.04) mg/dL Est GFR (CKD-EPI)AfAm (>60 ml/min/1.73 sqM) Est GFR (CKD-EPI)NonAf (>60 ml/min/1.73 sqM) Glucose (74-99) mg/dL Calcium (8.4-10.2) mg/dL Total Bilirubin (0.2-1.3) mg/dL AST (14-36) U/L ALT (4-34) U/L Alkaline Phosphatase (38-126) U/L Total Protein (6.3-8.2) g/dL Albumin (3.5-5.0) g/dL Lipase (23-300) U/L Urine Color Urine Appearance (Clear) Urine pH (5.0-8.0) Ur Specific [place] (1.001-1.035) Urine Protein (Negative) Urine Glucose (UA) (Negative) Urine Ketones (Negative) Urine Blood (Negative) Urine Nitrite (Negative) Urine Bilirubin (Negative) Urine Urobilinogen (<2.0) mg/dL Ur Leukocyte Esterase (Negative) Urine HCG, Qual Not Detected (Not Detectd) Disposition Clinical Impression: Abdominal pain Disposition: HOME SELF-CARE Condition: Stable Instructions (If sedation given, give patient instructions): Abdominal Pain (ED) Additional Instructions: Please return to the Emergency Department if symptoms worsen or any other concerns. Prescriptions: Ibuprofen [Motrin] 600 mg PO Q8HR PRN #20 tab PRN Reason: Pain Is patient prescribed a controlled substance at d/c from ED?: No Referrals: None,Stated [Primary Care Provider] - 1-2 days Time of Disposition: 13:07
--- NOTE | 2021-02-04 10:49 | US ---
EXAMINATION TYPE: US transvaginal DATE OF EXAM: 02/04/2021 COMPARISON: US 11/02/2020 CLINICAL HISTORY: pain. RLQ pain TECHNIQUE: Transvaginal (TV). Date of LMP: 01/07/2021 EXAM MEASUREMENTS: Uterus: 8.3 x 4.8 x 6.2 cm Endometrial Stripe: 2.8 cm Right Ovary: 3.9 x 3.2 x 3.1 cm Left Ovary: 3.4 x 2.2 x 3.1 cm 1. Uterus: Anteverted wnl 2. Endometrium: thickened at 2.8 cm with small amount of fluid noted within 3. Right Ovary: wnl, difficult to obtain good color and doppler waveforms due to posterior position to uterus. 4. Left Ovary: dominant 1.8 cm follicle noted. Spectral, color and waveform doppler imaging shows good arterial and venous flow within the ovaries ; there is no evidence for ovarian torsion. 5. Bilateral Adnexa: wnl 6. Posterior cul-de-sac: wnl IMPRESSION: 1. Persistent left ovarian dominant follicle. 2. Thickening of the endometrium.
[2021-02-04 11:57] LABS: Basophils % (A) 0 %; Eosinophils # (A) 0.3 k/uL (0-0.7); Eosinophils % (A) 3 %; HCT 43.1 % (34.0-46.0); HGB 14.9 gm/dL (11.4-16.0); Lymphocytes # (A) 3.4 k/uL (1.0-4.8); Lymphocytes % (A) 32 %; MCH 29.7 pg (25.0-35.0); MCHC 34.6 g/dL (31.0-37.0); MCV 85.9 fL (80.0-100.0); Mean Platelet Volume 8.3; Monocytes # (A) 0.4 k/uL (0-1.0); Monocytes % (A) 4 %; Neutrophils # (A) 6.2 k/uL (1.3-7.7); Neutrophils % (A) 59 %; Platelet Count 187 k/uL (150-450); RBC 5.02 m/uL (3.80-5.40); RDW 12.8 % (11.5-15.5); WBC 10.5 k/uL (3.8-10.6)
[2021-02-04 12:04] LABS: Potassium 4.4 mmol/L (3.5-5.1)
[2021-02-04 12:05] LABS: ALT 27 U/L (4-34); AST 22 U/L (14-36); African American GFR (CKD) >90 (>60 ml/min/1.73 sqM); Albumin 4.6 g/dL (3.5-5.0); Alkaline Phosphatase 74 U/L (38-126); Anion Gap 11 mmol/L; Blood Urea Nitrogen 9 mg/dL (7-17); Calcium 9.6 mg/dL (8.4-10.2); Carbon Dioxide 21 mmol/L (22-30); Chloride 107 mmol/L (98-107); Glucose 96 mg/dL (74-99); Lipase 87 U/L (23-300); Non-African American GFR(CKD) >90 (>60 ml/min/1.73 sqM); Sodium 139 mmol/L (137-145); Total Bilirubin 0.3 mg/dL (0.2-1.3); Total Protein 7.3 g/dL (6.3-8.2)
[2021-02-04] MEDS ORDERED: ONDANSETRON 4 MG/2 ML VIAL IVP STA (12:10)
[2021-02-04] MEDS ORDERED: HYDROmorphone 0.5 MG/0.5 ML SYRINGE IVP STA (12:10)
[2021-02-04] MEDS ORDERED: KETOROLAC 30 MG/ML 1 ML VIAL ONE (12:21)
[2021-02-04] MEDS ORDERED: KETOROLAC 30 MG/ML 1 ML VIAL IVP STA (12:23)
[2021-02-04 12:36] LABS: Appearance,Urine Clear (Clear); Bilirubin,Urine Negative (Negative); Blood,Urine Negative (Negative); Color,Urine Yellow; Glucose,Urine (UA) Negative (Negative); Ketones,Urine Negative (Negative); Leukocyte Esterase,Urine Negative (Negative); Nitrite,Urine Negative (Negative); Protein,Urine Negative (Negative); Specific Gravity,Urine 1.024 (1.001-1.035); Urobilinogen,Urine <2.0 mg/dL (<2.0)
[2021-02-04] MEDS ORDERED: ACET/COD 300 MG/30 MG STARTER PACK 6 TAB BTL PO STA (13:08)
== END 2021-02-04 13:22 | disposition home or self-care (01) ==
LOC: EC 09:17
DX: R10.31 Right lower quadrant pain (principal); F17.200 Nicotine dependence, unspecified, uncomplicated; Z79.1 Long term (current) use of non-steroidal anti-inflammatories (NSAID)
CPT/HCPCS: 36415; 80053; 83690; 85025; 81003; 81025; 93975; 76830; 99284; 96374; 96375; J2405; J1885

== ENCOUNTER 2021-03-23 17:15 | Emergency (ER) | payer OTHER ==
[2021-03-23 17:18] VITALS: BP 125/77; PULSE 90; RESP 20; TEMP 97.1
--- NOTE | 2021-03-23 18:41 | ED ---
URI HPI - General Chief Complaint: Upper Respiratory Infection Stated Complaint: sore throat/cough/headache Time Seen by Provider: 03/23/21 18:09 Source: patient Mode of arrival: ambulatory Limitations: no limitations - History of Present Illness Initial Comments: Patient presents with cough and sore throat. She has no chest or belly pain. She has no nausea or vomiting. She has no lightheadedness or dizziness. She tolerates oral intake. She has taken no medicine for her symptoms. She has no palpitations or exertional symptoms. - Related Data Home Medications Medication Instructions Recorded Confirmed Acetaminophen Tab [Tylenol Tab] 1,000 mg PO Q6HR PRN 02/04/21 03/23/21 EPINEPHrine (Auto Inject) [Epipen] 0.3 mg IM BID PRN 02/04/21 03/23/21 Norgestimate-Ethinyl Estradiol 1 tab PO DAILY 03/23/21 03/23/21 [Sprintec 28 Day Tablet] Previous Rx's Medication Instructions Recorded Ibuprofen [Motrin] 600 mg PO Q8HR PRN #20 tab 02/04/21 Allergies Allergy/AdvReac Type Severity Reaction Status Date / Time latex Allergy Rash/Hives Verified 03/23/21 18:23 pine nut Allergy Rapid Verified 03/23/21 18:23 Heart Rate tree nut Allergy Unknown Verified 03/23/21 18:23 venom-honey bee Allergy Rash/Hives Verified 03/23/21 18:23 [bee venom (honey bee)] artifical kang tree Allergy Rash/Hives Uncoded 03/23/21 17:18 Review of Systems ROS Statement: Those systems with pertinent positive or pertinent negative responses have been documented in the HPI. ROS Other: All systems not noted in ROS Statement are negative. Past Medical History Past Medical History: No Reported History Additional Past Medical History / Comment(s): Pneumonia hx, ovarian cyst History of Any Multi-Drug Resistant Organisms: None Reported Past Surgical History: Tubal Ligation Past Anesthesia/Blood Transfusion Reactions: No Reported Reaction Past Psychological History: Anxiety, Depression Smoking Status: Current every day smoker Past Alcohol Use History: None Reported Past Drug Use History: None Reported - Past Family History Father Family Medical History: Hypertension General Exam Limitations: no limitations General appearance: alert, in no apparent distress Head exam: Present: atraumatic, normocephalic, normal inspection Eye exam: Present: normal appearance, PERRL, EOMI. Absent: scleral icterus, conjunctival injection, periorbital swelling ENT exam: Present: normal exam, mucous membranes moist Neck exam: Present: normal inspection. Absent: tenderness, meningismus, lymphadenopathy Respiratory exam: Present: normal lung sounds bilaterally. Absent: respiratory distress, wheezes, rales, rhonchi, stridor Cardiovascular Exam: Present: regular rate, normal rhythm, normal heart sounds. Absent: systolic murmur, diastolic murmur, rubs, gallop, clicks GI/Abdominal exam: Present: soft, normal bowel sounds. Absent: distended, tenderness, guarding, rebound, rigid Extremities exam: Present: normal inspection, full ROM, normal capillary refill. Absent: tenderness, pedal edema, joint swelling, calf tenderness Back exam: Present: normal inspection Neurological exam: Present: alert, oriented X3, CN II-XII intact Psychiatric exam: Present: normal affect, normal mood Skin exam: Present: warm, dry, intact, normal color. Absent: rash Course Vital Signs 03/23/21 17:16 Temperature 97.1 F L Pulse Rate 90 Respiratory 20 Rate Blood Pressure 125/77 O2 Sat by Pulse 99 Oximetry Medical Decision Making - Medical Decision Making Patient has cough and sore throat. Covid test is positive. Vital signs are normal. She is stable for discharge. - Lab Data Lab Results 03/23/21 Range/Units 17:21 Coronavirus (PCR) Detected A (Not Detectd) Disposition Clinical Impression: COVID-19 Disposition: HOME SELF-CARE Condition: Good Instructions (If sedation given, give patient instructions): Upper Respiratory Infection (ED) Is patient prescribed a controlled substance at d/c from ED?: No Referrals: None,Stated [Primary Care Provider] - 1-2 days
== END 2021-03-23 18:56 | disposition home or self-care (01) ==
LOC: EC 17:15
DX: U07.1 COVID-19 (principal); F41.9 Anxiety disorder, unspecified; F32.A Depression, unspecified; F17.200 Nicotine dependence, unspecified, uncomplicated
CPT/HCPCS: 87635; 99283

== ENCOUNTER → 2022-01-02 | Outpatient (CLI) | payer OTHER ==
--- NOTE | 2022-01-02 15:18 | US ---
EXAMINATION TYPE: US pelvic complete DATE OF EXAM: 01/02/2022 COMPARISON: US February 04, 2021 CLINICAL HISTORY: N83.209 ovarian cyst. Pt states LLQ pain TECHNIQUE: Transabdominal (TA). Transabdominal sonographic images of the pelvis were acquired. Date of LMP: 12/27/2021 EXAM MEASUREMENTS: Uterus: 7.4 x 4.0 x 4.7 cm Endometrial Stripe: 0.4 cm Right Ovary: 2.7 x 2.7 x 1.7 cm Left Ovary: 3.1 x 3.0 x 1.5 cm 1. Uterus: Anteverted wnl 2. Endometrium: wnl 3. Right Ovary: wnl 4. Left Ovary: wnl 5. Bilateral Adnexa: wnl 6. Posterior cul-de-sac: wnl IMPRESSION: No suspicious adnexal masses. Unremarkable transabdominal pelvic ultrasound study
== END | disposition home or self-care (01) ==
LOC: RADUSWWP 08:28
PROVIDERS: ATTEND Family Medicine
DX: R10.32 Left lower quadrant pain (principal)
CPT/HCPCS: 76856

== ENCOUNTER 2022-05-27 08:28 | Emergency (ER) | payer OTHER ==
[2022-05-27 08:32] VITALS: TEMP 98.3
[2022-05-27] MEDS ORDERED: ONDANSETRON ODT 4 MG TAB PO STA (09:00)
[2022-05-27] MEDS ORDERED: IBUPROFEN 600 MG TAB PO STA (09:00)
--- NOTE | 2022-05-27 09:23 | XR ---
EXAMINATION TYPE: XR chest 2V DATE OF EXAM: 05/27/2022 COMPARISON: NONE HISTORY: Chest pain TECHNIQUE: Frontal and lateral views of the chest are obtained. FINDINGS: There is peribronchial cuffing with increased basilar markings which could reflect developing infiltr ate. Correlate clinically. No evidence for pneumothorax. No pleural effusion. The cardiac silhouette size is within normal limits. The osseous structures are grossly intact. IMPRESSION: 1. There is peribronchial cuffing with increased basilar markings which could reflect developing inf iltrate. Correlate clinically.
[2022-05-27 09:35] VITALS: RESP 18
[2022-05-27] MEDS ORDERED: IPRATROPIUM-ALBUTEROL 3 ML NEB INHALATION STA (10:42)
[2022-05-27] MEDS ORDERED: AMOXICILLIN 500 MG CAP PO STA (10:43)
[2022-05-27] MEDS ORDERED: predniSONE 20 MG TAB PO STA (10:45)
--- NOTE | 2022-05-27 11:04 | ED ---
URI HPI - General Chief Complaint: Upper Respiratory Infection Stated Complaint: fever, sob Time Seen by Provider: 05/27/22 08:30 Source: patient Mode of arrival: ambulatory Limitations: no limitations - History of Present Illness Initial Comments: 22 year old female with asthma who presents to ED with URI symptoms. She reports to cough, sob, fever, ear pain and sore throat. No sick contacts. Has been using her inhaler without improvement. Last took Motrin last night. Has never been on life support. Feels similar to when she had pneumonia previously. - Related Data Home Medications Medication Instructions Recorded Confirmed Ergocalciferol (Vitamin D2) 1,250 mcg PO QMONTHLY 05/27/22 05/27/22 [Drisdol (50,000 Iu)] Previous Rx's Medication Instructions Recorded Albuterol Nebulized [Ventolin 2.5 mg INHALATION Q4H PRN #75 ml 05/27/22 Nebulized] Amoxicillin 1,000 mg PO Q8H 5 Days #30 capsule 05/27/22 Ipratropium Nebulized [Atrovent 0.5 mg INHALATION Q6HR #300 ml 05/27/22 Nebulized 0.2 MG/ML] Ondansetron Odt [Zofran Odt] 4 mg PO Q8HR PRN #15 tab 05/27/22 predniSONE [Deltasone] 20 mg PO BID #10 tab 05/27/22 Allergies Allergy/AdvReac Type Severity Reaction Status Date / Time latex Allergy Rash/Hives Verified 05/27/22 08:43 pine nut Allergy Rapid Verified 05/27/22 08:43 Heart Rate tree nut Allergy Unknown Verified 05/27/22 08:43 venom-honey bee Allergy Rash/Hives Verified 05/27/22 08:43 [bee venom (honey bee)] artifical kang tree Allergy Rash/Hives Uncoded 05/27/22 08:32 Review of Systems ROS Statement: Those systems with pertinent positive or pertinent negative responses have been documented in the HPI. ROS Other: All systems not noted in ROS Statement are negative. Past Medical History Past Medical History: No Reported History Additional Past Medical History / Comment(s): Pneumonia hx, ovarian cyst History of Any Multi-Drug Resistant Organisms: None Reported Past Surgical History: Tubal Ligation Past Anesthesia/Blood Transfusion Reactions: No Reported Reaction Past Psychological History: Anxiety, Depression Smoking Status: Current every day smoker Past Alcohol Use History: None Reported Past Drug Use History: None Reported - Past Family History Father Family Medical History: Hypertension General Exam Limitations: no limitations General appearance: alert, in no apparent distress Head exam: Present: atraumatic, normocephalic, normal inspection Eye exam: Present: normal appearance, PERRL, EOMI. Absent: scleral icterus, conjunctival injection, periorbital swelling ENT exam: Present: normal exam, mucous membranes moist Neck exam: Present: normal inspection. Absent: tenderness, meningismus, lymphadenopathy Respiratory exam: Present: rales (right base). Absent: respiratory distress, wheezes, rhonchi, stridor Cardiovascular Exam: Present: normal rhythm, tachycardia, normal heart sounds. Absent: systolic murmur, diastolic murmur, rubs, gallop, clicks GI/Abdominal exam: Present: soft, normal bowel sounds. Absent: distended, tenderness, guarding, rebound, rigid Extremities exam: Present: normal inspection, full ROM, normal capillary refill. Absent: tenderness, pedal edema, joint swelling, calf tenderness Back exam: Present: normal inspection Neurological exam: Present: alert, oriented X3, CN II-XII intact Psychiatric exam: Present: normal affect, normal mood Skin exam: Present: warm, dry, intact, normal color. Absent: rash Course Vital Signs 05/27/22 05/27/22 05/27/22 08:29 09:34 11:11 Temperature 98.3 F Pulse Rate 110 H 99 81 Respiratory 22 18 Rate Blood Pressure 128/84 130/73 O2 Sat by Pulse 94 L 95 Oximetry 05/27/22 05/27/22 11:20 11:28 Temperature Pulse Rate 88 104 H Respiratory 18 Rate Blood Pressure 131/73 O2 Sat by Pulse 95 Oximetry Medical Decision Making - Medical Decision Making Was pt. sent in by a medical professional or institution (, PA, BREAST WORKER, urgent care, hospital, or jail...) When possible be specific @ -No Did you speak to anyone other than the patient for history (EMS, parent, family, police, friend...)? What history was obtained from this source @ -No Did you review nursing and triage notes (agree or disagree)? Why? @ -I reviewed and agree with nursing and triage notes Were old charts reviewed (outside hosp., previous admission, EMS record, old EKG, old radiological studies, urgent care reports/EKG's, jail records)? Report findings @ -No old charts were reviewed Differential Diagnosis (chest pain, altered mental status, abdominal pain women, abdominal pain men, vaginal bleeding, weakness, fever, dyspnea, syncope, headache, dizziness, GI bleed, back pain, seizure, CVA, palpatations, mental health, musculoskeletal)? @ -URI, UTI, covid, pneumonia EKG interpreted by me (3pts min.). @ -No X-rays interpreted by me (1pt min.). @ -yes CT interpreted by me (1pt min.). @ -None done U/S interpreted by me (1pt. min.). @ -None done What testing was considered but not performed or refused? (CT, X-rays, U/S, labs)? Why? @ -None What meds were considered but not given or refused? Why? @ -None Did you discuss the management of the patient with other professionals (professionals i.e. , PA, BREAST WORKER, lab, RT, psych nurse, case management social worker, financial legal assistant, teacher, contact officer, case hardener)? Give summary @ -no Was smoking cessation discussed for >3mins.? @ -No Was critical care preformed (if so, how long)? @ -No Were there social determinants of health that impacted care today? How? (Homelessness, low income, unemployed, alcoholism, drug addiction, transportation, low edu. Level, literacy, decrease access to med. care, skilled nursing, rehab)? @ -No Was there de-escalation of care discussed even if they declined (Discuss DNR or withdrawal of care, Hospice)? DNR status @ -No What co-morbidities impacted this encounter? (DM, HTN, Smoking, COPD, CAD, Cancer, CVA, ARF, Chemo, Hep., AIDS, mental health diagnosis, sleep apnea, morbid obesity)? @ -Asthma Was patient admitted / discharged? Hospital course, mention meds given and route, prescriptions, significant lab abnormalities, going to OR and other pertinent info. @ -Discharged Undiagnosed new problem with uncertain prognosis? @ -yes Drug Therapy requiring intensive monitoring for toxicity (Heparin, Nitro, Insulin, Cardizem)? @ -No Were any procedures done? @ -No Diagnosis/symptom? @ -acute cough, CAP, asthma exacerbation Acute, or Chronic, or Acute on Chronic? @ -acute, asthma - acute on chronic Uncomplicated (without systemic symptoms) or Complicated (systemic symptoms)? @ -complicated Side effects of treatment? @ -No Exacerbation, Progression, or Severe Exacerbation? @ -yes Poses a threat to life or bodily function? How? (Chest pain, [place], [place], pneumonia, PE, COPD, DKA, ARF, appy, cholecystitis, CVA, Diverticulitis, Homicidal, Suicidal, threat to staff... and all critical care pts) @ -yes - Lab Data Lab Results 05/27/22 Range/Units 09:05 Influenza Type A (PCR) Not Detected (Not Detectd) Influenza Type B (PCR) Not Detected (Not Detectd) RSV (PCR) Not Detected (Not Detectd) SARS-CoV-2 (PCR) Not Detected (Not Detectd) Disposition Clinical Impression: CAP (community acquired pneumonia), Cough, Bronchospasm Disposition: HOME SELF-CARE Condition: Stable Instructions (If sedation given, give patient instructions): Community Acquired Pneumonia (ED) Additional Instructions: Please use the breathing treatments every 4-6 hours. Take the steroids and antibiotics as directed. Follow up with your doctor before the end of the week and return for any new or worsening symptoms Prescriptions: Amoxicillin 1,000 mg PO Q8H 5 Days #30 capsule Ipratropium Nebulized [Atrovent Nebulized 0.2 MG/ML] 0.5 mg INHALATION Q6HR #300 ml predniSONE [Deltasone] 20 mg PO BID #10 tab Albuterol Nebulized [Ventolin Nebulized] 2.5 mg INHALATION Q4H PRN #75 ml PRN Reason: difficulty in breathing Ondansetron Odt [Zofran Odt] 4 mg PO Q8HR PRN #15 tab PRN Reason: Nausea Is patient prescribed a controlled substance at d/c from ED?: No Referrals: Meek Luciano MD [Primary Care Provider] - 1-2 days Time of Disposition: 11:04
[2022-05-27 11:29] VITALS: BP 131/73; PULSE 104
== END 2022-05-27 11:29 | disposition home or self-care (01) ==
LOC: EC 08:28
DX: J18.9 Pneumonia, unspecified organism (principal); J98.01 Acute bronchospasm; F17.200 Nicotine dependence, unspecified, uncomplicated; Z98.51 Tubal ligation status; Z91.040 Latex allergy status; Z91.030 Bee allergy status; Z20.822 Contact with and (suspected) exposure to COVID-19
CPT/HCPCS: 94640; 87636; 71046; 99285; J7512

== ENCOUNTER 2022-11-18 10:18 | Emergency (ER) | payer OTHER ==
[2022-11-18 10:54] VITALS: RESP 20
--- NOTE | 2022-11-18 11:17 | ED ---
General Adult HPI - General Chief complaint: Extremity Injury, Lower Stated complaint: L Hip pain Time Seen by Provider: 11/18/22 10:53 Source: patient, RN notes reviewed Mode of arrival: ambulatory Limitations: no limitations - History of Present Illness Initial comments: 22-year-old female presents with chief complaint of left buttock pain that radiates down the left leg. She states that she woke up with it this morning. She has never had pain like this in the past. She states it starts in her left buttock and radiates down the left leg. She has tried Motrin at home which helps somewhat. She states that the pain is aggravated With movement. Denies fever, chills, loss of bowel or bladder function, saddle anesthesia, trauma, leg swelling, chest pain, shortness of breath. - Related Data Home Medications Medication Instructions Recorded Confirmed Ergocalciferol (Vitamin D2) 1,250 mcg PO QMONTHLY 05/27/22 05/27/22 [Drisdol (50,000 Iu)] Previous Rx's Medication Instructions Recorded Albuterol Nebulized [Ventolin 2.5 mg INHALATION Q4H PRN #75 ml 05/27/22 Nebulized] Amoxicillin 1,000 mg PO Q8H 5 Days #30 capsule 05/27/22 Ipratropium Nebulized [Atrovent 0.5 mg INHALATION Q6HR #300 ml 05/27/22 Nebulized 0.2 MG/ML] Ondansetron Odt [Zofran Odt] 4 mg PO Q8HR PRN #15 tab 05/27/22 predniSONE [Deltasone] 20 mg PO BID #10 tab 05/27/22 Lidocaine 5% Patch [Lidoderm 5% 1 patch TOPICAL DAILY #30 patch 11/18/22 Patch] predniSONE 50 mg PO DAILY #5 tab 11/18/22 Allergies Allergy/AdvReac Type Severity Reaction Status Date / Time latex Allergy Rash/Hives Verified 11/18/22 10:52 pine nut Allergy Rapid Verified 11/18/22 10:52 Heart Rate tree nut Allergy Unknown Verified 11/18/22 10:52 venom-honey bee Allergy Rash/Hives Verified 11/18/22 10:52 [bee venom (honey bee)] artifical kang tree Allergy Rash/Hives Uncoded 11/18/22 10:52 Review of Systems ROS Statement: Those systems with pertinent positive or pertinent negative responses have been documented in the HPI. ROS Other: All systems not noted in ROS Statement are negative. Past Medical History Past Medical History: No Reported History Additional Past Medical History / Comment(s): Pneumonia hx, ovarian cyst History of Any Multi-Drug Resistant Organisms: None Reported Past Surgical History: Tubal Ligation Past Anesthesia/Blood Transfusion Reactions: No Reported Reaction Past Psychological History: Anxiety, Depression Smoking Status: Vaper Past Alcohol Use History: None Reported Past Drug Use History: None Reported - Past Family History Father Family Medical History: Hypertension General Exam Limitations: no limitations General appearance: alert, in no apparent distress Head exam: Present: atraumatic, normocephalic, normal inspection Eye exam: Present: normal appearance, PERRL, EOMI. Absent: scleral icterus, conjunctival injection, periorbital swelling ENT exam: Present: normal exam, mucous membranes moist Neck exam: Present: normal inspection. Absent: tenderness, meningismus, lymphadenopathy Respiratory exam: Present: normal lung sounds bilaterally. Absent: respiratory distress, wheezes, rales, rhonchi, stridor Cardiovascular Exam: Present: regular rate, normal rhythm, normal heart sounds. Absent: systolic murmur, diastolic murmur, rubs, gallop, clicks GI/Abdominal exam: Present: soft, normal bowel sounds. Absent: distended, tenderness, guarding, rebound, rigid Extremities exam: Present: normal inspection, full ROM, tenderness (left buttock), normal capillary refill. Absent: pedal edema, joint swelling, calf tenderness Back exam: Present: normal inspection Neurological exam: Present: alert, oriented X3 Psychiatric exam: Present: normal affect, normal mood Skin exam: Present: warm, dry, intact, normal color. Absent: rash Course Vital Signs 11/18/22 11/18/22 10:50 13:20 Temperature 98.1 F 97.9 F Pulse Rate 80 78 Respiratory 20 20 Rate Blood Pressure 101/65 109/67 O2 Sat by Pulse 99 99 Oximetry Medical Decision Making - Medical Decision Making Was pt. sent in by a medical professional or institution (, PA, FRUIT TESTER, urgent care, hospital, or snf...) When possible be specific @ -No Did you speak to anyone other than the patient for history (EMS, parent, family, police, friend...)? What history was obtained from this source @ -No Did you review nursing and triage notes (agree or disagree)? Why? @ -I reviewed and agree with nursing and triage notes Were old charts reviewed (outside hosp., previous admission, EMS record, old EKG, old radiological studies, urgent care reports/EKG's, snf records)? Report findings @ -No old charts were reviewed Differential Diagnosis (chest pain, altered mental status, abdominal pain women, abdominal pain men, vaginal bleeding, weakness, fever, dyspnea, syncope, headache, dizziness, GI bleed, back pain, seizure, CVA, palpatations, mental health, musculoskeletal)? @ -Differential Musculoskeletal Muscular strain, contusion, ligament sprain, fracture, arthritis, septic arthritis, bursitis, cellulitis, muscle spasm, nerve compression, DVT, arterial occlusion, herpes zoster, electrolyte abnormality, tumor.... This is not meant to be in all inclusive list EKG interpreted by me (3pts min.). @ -None X-rays interpreted by me (1pt min.). @ -None done CT interpreted by me (1pt min.). @ -None done U/S interpreted by me (1pt. min.). @ -None done What testing was considered but not performed or refused? (CT, X-rays, U/S, labs)? Why? @ -X-rays considered but patient has no new trauma. What meds were considered but not given or refused? Why? @ -None Did you discuss the management of the patient with other professionals (professionals i.e. , PA, FRUIT TESTER, lab, RT, psych nurse, social work instructor, candy puller, teacher, labor relations officer, geriatric case manager)? Give summary @ -No Was smoking cessation discussed for >3mins.? @ -No Was critical care preformed (if so, how long)? @ -No Were there social determinants of health that impacted care today? How? (Homelessness, low income, unemployed, alcoholism, drug addiction, transportation, low edu. Level, literacy, decrease access to med. care, [facility], rehab)? @ -No Was there de-escalation of care discussed even if they declined (Discuss DNR or withdrawal of care, Hospice)? DNR status @ -No What co-morbidities impacted this encounter? (DM, HTN, Smoking, COPD, CAD, Cancer, CVA, ARF, Chemo, Hep., AIDS, mental health diagnosis, sleep apnea, morbid obesity)? @ -None Was patient admitted / discharged? Hospital course, mention meds given and route, prescriptions, significant lab abnormalities, going to OR and other pertinent info. @ -Discharged. Patient presented to emergency department chief complaint of left buttock pain radiating down her left leg. This pain is consistent with sciatica. No imaging was obtained as there is no new trauma. She given Norflex, Toradol, lidocaine patch which improved her symptoms. Prescription written for short course of steroids. Patient stable at time of discharge. Case discussed with my attending, Dr. Melendez Undiagnosed new problem with uncertain prognosis? @ -No Drug Therapy requiring intensive monitoring for toxicity (Heparin, Nitro, Insulin, Cardizem)? @ -No Were any procedures done? @ -No Diagnosis/symptom? @ -sciatica Acute, or Chronic, or Acute on Chronic? @ -acute Uncomplicated (without systemic symptoms) or Complicated (systemic symptoms)? @ -uncomplicated Side effects of treatment? @ -No Exacerbation, Progression, or Severe Exacerbation? @ -No Poses a threat to life or bodily function? How? (Chest pain, [place], [place], pneumonia, PE, COPD, DKA, ARF, appy, cholecystitis, CVA, Diverticulitis, Homicidal, Suicidal, threat to staff... and all critical care pts) @ -No Disposition Clinical Impression: Sciatica Disposition: HOME SELF-CARE Condition: Stable Instructions (If sedation given, give patient instructions): Sciatica (ED) Additional Instructions: Please follow up with your primary care provider. Return to the emergency department for new or worsening symptoms. Prescriptions: Lidocaine 5% Patch [Lidoderm 5% Patch] 1 patch TOPICAL DAILY #30 patch predniSONE 50 mg PO DAILY #5 tab Is patient prescribed a controlled substance at d/c from ED?: No Referrals: Rudolph Horner [Primary Care Provider] - 1-2 days Time of Disposition: 13:10
[2022-11-18] MEDS ORDERED: LIDOCAINE 5% PATCH TOPICAL STA (11:26)
[2022-11-18] MEDS ORDERED: ORPHENADRINE 30 MG/ML 2 ML VIAL IM STA (11:26)
[2022-11-18] MEDS ORDERED: KETOROLAC 15 MG/ML 1 ML VIAL IM STA (11:26)
[2022-11-18] MEDS ORDERED: ACET/COD 300 MG/30 MG STARTER PACK 6 TAB BTL PO STA (13:11)
[2022-11-18 13:24] VITALS: BP 109/67; PULSE 78; TEMP 97.9
== END 2022-11-18 13:22 | disposition home or self-care (01) ==
LOC: EC 10:18
DX: M54.32 Sciatica, left side (principal); F17.290 Nicotine dependence, other tobacco product, uncomplicated; Z86.59 Personal history of other mental and behavioral disorders; Z91.040 Latex allergy status; Z91.030 Bee allergy status; Z91.018 Allergy to other foods
CPT/HCPCS: 99283; 96372 ×2; J2360; J1885

== ENCOUNTER 2023-08-26 01:07 | Emergency (ER) | payer OTHER ==
[2023-08-26 01:13] VITALS: BP 143/87; PULSE 77; RESP 18; TEMP 98.3
--- NOTE | 2023-08-26 01:32 | ED ---
Female Urogenital HPI - General Source: patient Mode of arrival: ambulatory Limitations: no limitations <Flip Ritter - Last Filed: 08/26/23 01:32> - General Source: patient, RN notes reviewed, old records reviewed Mode of arrival: ambulatory Limitations: no limitations - History of Present Illness MD Complaint: vaginal bleeding, pelvic pain -: days(s) Location: suprapubic Quality: cramping, dull Consistency: constant Improves with: none Worsens with: none Patient : No Associated Symptoms: vaginal bleeding <Dennis Archuleta - Last Filed: 09/05/23 22:37> - General Chief complaint: Vaginal Bleeding Stated complaint: Cramping, Vaginal Bleeding Time Seen by Provider: 08/26/23 01:17 - History of Present Illness Initial comments: Quick note 23-year-old female presenting to the ED with a chief complaint of vaginal bleeding. Patient states since earlier tonight has had abdominal pain radiating to her back with vaginal bleeding. Patient denies . (Flip Ritter) This is a 23-year-old female with persistent vaginal bleeding significant vaginal bleeding during menses with pain (Denins Archuleta) - Related Data Home Medications Medication Instructions Recorded Confirmed Ergocalciferol (Vitamin D2) 1,250 mcg PO QMONTHLY 05/27/22 05/27/22 [Drisdol (50,000 Iu)] Previous Rx's Medication Instructions Recorded Albuterol Nebulized [Ventolin 2.5 mg INHALATION Q4H PRN #75 ml 05/27/22 Nebulized] Amoxicillin 1,000 mg PO Q8H 5 Days #30 capsule 05/27/22 Ipratropium Nebulized [Atrovent 0.5 mg INHALATION Q6HR #300 ml 05/27/22 Nebulized 0.2 MG/ML] Ondansetron Odt [Zofran Odt] 4 mg PO Q8HR PRN #15 tab 05/27/22 predniSONE [Deltasone] 20 mg PO BID #10 tab 05/27/22 Lidocaine 5% Patch [Lidoderm 5% 1 patch TOPICAL DAILY #30 patch 11/18/22 Patch] predniSONE 50 mg PO DAILY #5 tab 11/18/22 Allergies Allergy/AdvReac Type Severity Reaction Status Date / Time latex Allergy Rash/Hives Verified 08/26/23 01:13 pine nut Allergy Rapid Verified 08/26/23 01:13 Heart Rate tree nut Allergy Unknown Verified 08/26/23 01:13 venom-honey bee Allergy Rash/Hives Verified 08/26/23 01:13 [bee venom (honey bee)] artifical kang tree Allergy Rash/Hives Uncoded 08/26/23 01:13 Review of Systems ROS Other: All systems not noted in ROS Statement are negative. <Flip Ritter - Last Filed: 08/26/23 01:32> ROS Other: All systems not noted in ROS Statement are negative. <Dennis Archuleta - Last Filed: 09/05/23 22:37> ROS Statement: Those systems with pertinent positive or pertinent negative responses have been documented in the HPI. Past Medical History Past Medical History: No Reported History Additional Past Medical History / Comment(s): Pneumonia hx, ovarian cyst History of Any Multi-Drug Resistant Organisms: None Reported Past Surgical History: Tubal Ligation Past Anesthesia/Blood Transfusion Reactions: No Reported Reaction Past Psychological History: Anxiety, Depression Smoking Status: Vaper Past Alcohol Use History: None Reported Past Drug Use History: None Reported - Past Family History Father Family Medical History: Hypertension <StoneFlip - Last Filed: 08/26/23 01:32> General Exam Limitations: no limitations <StoneFlip - Last Filed: 08/26/23 01:32> General appearance: alert, in no apparent distress Head exam: Present: atraumatic, normocephalic, normal inspection Eye exam: Present: normal appearance, PERRL, EOMI. Absent: scleral icterus, conjunctival injection, periorbital swelling ENT exam: Present: normal exam, mucous membranes moist Neck exam: Present: normal inspection. Absent: tenderness, meningismus, lymphadenopathy Respiratory exam: Present: normal lung sounds bilaterally. Absent: respiratory distress, wheezes, rales, rhonchi, stridor Cardiovascular Exam: Present: regular rate, normal rhythm, normal heart sounds. Absent: systolic murmur, diastolic murmur, rubs, gallop, clicks GI/Abdominal exam: Present: soft, normal bowel sounds. Absent: distended, tenderness, guarding, rebound, rigid Extremities exam: Present: normal inspection, full ROM, normal capillary refill. Absent: tenderness, pedal edema, joint swelling, calf tenderness Back exam: Present: normal inspection Neurological exam: Present: alert, oriented X3, CN II-XII intact Psychiatric exam: Present: normal affect, normal mood Skin exam: Present: warm, dry, intact, normal color. Absent: rash <Dennis Archuelta - Last Filed: 09/05/23 22:37> - General Exam Comments Initial Comments: Visual Physical Exam Vital signs reviewed General: Well-appearing, nontoxic, no acute distress. Head: Normocephalic, atraumatic Eyes: PERRLA, EOMI ENT: Airway patent Chest: Nonlabored breathing Skin: No visual rash, normal skin tone Neuro: Alert and oriented 3 Musculoskeletal: No gross abnormalities (Flip Ritter) Course <Dennis Archuleta - Last Filed: 09/05/23 22:37> Vital Signs 08/26/23 01:10 Temperature 98.3 F Pulse Rate 77 Respiratory 18 Rate Blood Pressure 143/87 O2 Sat by Pulse 98 Oximetry - Reevaluation(s) Reevaluation #1: 08/26/23 05:08 Medical records reviewed (Dennis Archuleta) Reevaluation #2: 08/26/23 05:08 Patient has no significant bleeding here in the ER (Dennis Archuleta) Reevaluation #3: 08/26/23 05:08 Patient informed of results and questions answered (Dennis Archuleta) Reevaluation #4: Was pt. sent in by a medical professional or institution (, PA, LENS COATING TECHNICIAN, urgent care, hospital, or half-way...) When possible be specific @ -no Did you speak to anyone other than the patient for history (EMS, parent, family, police, friend...)? What history was obtained from this source @ -no Did you review nursing and triage notes (agree or disagree)? Why? @ -agree Are old charts reviewed (outside hosp., previous admission, EMS record, old EKG, old radiological studies, urgent care reports/EKG's, half-way records)? Report findings @ -yes Differential Diagnosis (chest pain, altered mental status, abdominal pain women, abdominal pain men, vaginal bleeding, weakness, fever, dyspnea, syncope, headache, dizziness, GI bleed, back pain, seizure, CVA, palpatations, mental health, musculoskeletal)? @ -prior EKG interpreted by me (3pts min.). @ -no X-rays interpreted by me (1pt min.). @ -no CT interpreted by me (1pt min.). @ -no U/S interpreted by me (1pt. min.). @ -yes negative for acute disease What testing was considered but not performed or refused? (CT, X-rays, U/S, labs)? Why? @ -none What meds were considered but not given or refused? Why? @ -none Did you discuss the management of the patient with other professionals (professionals i.e. DrDom, PA, LENS COATING TECHNICIAN, lab, RT, psych nurse, licensed social worker, stapling machine operator, teacher, sports development officer, field nurse case manager)? Give summary @ -no Was smoking cessation discussed for >3mins.? @ -no Was critical care preformed (if so, how long)? @ -no Were there social determinants of health that impacted care today? How? (Homelessness, low income, unemployed, alcoholism, drug addiction, transporta tion, low edu. Level, literacy, decrease access to med. care, penitentiary, rehab)? @ -none Was there de-escalation of care discussed even if they declined (Discuss DNR or withdrawal of care, Hospice)? DNR status @ -no What co-morbidities impacted this encounter? (DM, HTN, Smoking, COPD, CAD, Cancer, CVA, ARF, Chemo, Hep., AIDS, mental health diagnosis, sleep apnea, morbid obesity)? @ -none Was patient admitted / discharged? Hospital course, mention meds given and route, prescriptions, significant lab abnormalities, going to OR and other pertinent info. @ - 23 female with vaginal bleeding, patient has normal hemoglobin normal vital signs normal ultrasound can be discharged home Discharge Undiagnosed new problem with uncertain prognosis? @ -no Drug Therapy requiring intensive monitoring for toxicity (Heparin, Nitro, Insulin, Cardizem)? @ -no Were any procedures done? @ -no Diagnosis/symptom? @ -Vaginal bleeding Acute, or Chronic, or Acute on Chronic? @ -Acute Uncomplicated (without systemic symptoms) or Complicated (systemic symptoms)? @ -Complicated Side effects of treatment? @ -no Exacerbation, Progression, or Severe Exacerbation? @ -exacerbation Poses a threat to life or bodily function? How? (Chest pain, [place], [place], pneumonia, PE, COPD, DKA, ARF, appy, cholecystitis, CVA, Diverticulitis, Homicidal, Suicidal, threat to staff... and all critical care pts) @ -yes with significant bleeding (Dennis Archuleta) Medical Decision Making <Flip Ritter - Last Filed: 08/26/23 01:32> - Lab Data Result diagrams: 08/26/23 01:50 08/26/23 01:50 - Radiology Data Radiology results: report reviewed (Ultrasound pelvis negative for acute disease), image reviewed <Dennis Archuleta - Last Filed: 09/05/23 22:37> - Medical Decision Making Quicknote portion performed. Signed Flip Ritter PA-C (Flip Ritter) 23 female with vaginal bleeding, patient has normal hemoglobin normal vital signs normal ultrasound can be discharged home (Dennis Archuleta) - Lab Data Lab Results 08/26/23 08/26/23 08/26/23 Range/Units 01:50 01:50 02:04 WBC 8.6 (3.8-10.6) k/uL RBC 4.95 (3.80-5.40) m/uL Hgb 14.5 (11.4-16.0) gm/dL Hct 43.9 (34.0-46.0) % MCV 88.7 (80.0-100.0) fL MCH 29.2 (25.0-35.0) pg MCHC 32.9 (31.0-37.0) g/dL RDW 12.5 (11.5-15.5) % Plt Count 211 (150-450) k/uL MPV 8.0 Neutrophils % 45 % Lymphocytes % 45 % Monocytes % 5 % Eosinophils % 2 % Basophils % 1 % Neutrophils # 3.9 (1.3-7.7) k/uL Lymphocytes # 3.9 (1.0-4.8) k/uL Monocytes # 0.5 (0-1.0) k/uL Eosinophils # 0.2 (0-0.7) k/uL Basophils # 0.1 (0-0.2) k/uL Sodium 140 (137-145) mmol/L Potassium 3.7 (3.5-5.1) mmol/L Chloride 110 H (98-107) mmol/L Carbon Dioxide 21 L (22-30) mmol/L Anion Gap 9 mmol/L BUN 11 (7-17) mg/dL Creatinine 0.55 (0.52-1.04) mg/dL Est GFR (CKD-EPI)AfAm >90 (>60 ml/min/1.73 sqM) Est GFR (CKD-EPI)NonAf >90 (>60 ml/min/1.73 sqM) Glucose 98 (74-99) mg/dL Calcium 9.4 (8.4-10.2) mg/dL Total Bilirubin 0.4 (0.2-1.3) mg/dL AST 19 (14-36) U/L ALT 18 (4-34) U/L Alkaline Phosphatase 71 (38-126) U/L Total Protein 7.2 (6.3-8.2) g/dL Albumin 4.7 (3.5-5.0) g/dL Urine Color Light Yellow Urine Appearance Cloudy H (Clear) Urine pH 6.0 (5.0-8.0) Ur Specific [place] 1.031 (1.001-1.035) Urine Protein Trace H (Negative) Urine Glucose (UA) Negative (Negative) Urine Ketones Negative (Negative) Urine Blood Trace H (Negative) Urine Nitrite Positive H (Negative) Urine Bilirubin Negative (Negative) Urine Urobilinogen <2.0 (<2.0) mg/dL Ur Leukocyte Esterase Negative (Negative) Urine RBC 2 (0-5) /hpf Urine WBC 10 H (0-5) /hpf Ur Squamous Epith Cells 10 H (0-4) /hpf Urine Bacteria Many H (None) /hpf Urine Mucus Many H (None) /hpf Urine HCG, Qual (Not Detectd) 08/26/23 Range/Units 02:04 WBC (3.8-10.6) k/uL RBC (3.80-5.40) m/uL Hgb (11.4-16.0) gm/dL Hct (34.0-46.0) % MCV (80.0-100.0) fL MCH (25.0-35.0) pg MCHC (31.0-37.0) g/dL RDW (11.5-15.5) % Plt Count (150-450) k/uL MPV Neutrophils % % Lymphocytes % % Monocytes % % Eosinophils % % Basophils % % Neutrophils # (1.3-7.7) k/uL Lymphocytes # (1.0-4.8) k/uL Monocytes # (0-1.0) k/uL Eosinophils # (0-0.7) k/uL Basophils # (0-0.2) k/uL Sodium (137-145) mmol/L Potassium (3.5-5.1) mmol/L Chloride (98-107) mmol/L Carbon Dioxide (22-30) mmol/L Anion Gap mmol/L BUN (7-17) mg/dL Creatinine (0.52-1.04) mg/dL Est GFR (CKD-EPI)AfAm (>60 ml/min/1.73 sqM) Est GFR (CKD-EPI)NonAf (>60 ml/min/1.73 sqM) Glucose (74-99) mg/dL Calcium (8.4-10.2) mg/dL Total Bilirubin (0.2-1.3) mg/dL AST (14-36) U/L ALT (4-34) U/L Alkaline Phosphatase (38-126) U/L Total Protein (6.3-8.2) g/dL Albumin (3.5-5.0) g/dL Urine Color Urine Appearance (Clear) Urine pH (5.0-8.0) Ur Specific [place] (1.001-1.035) Urine Protein (Negative) Urine Glucose (UA) (Negative) Urine Ketones (Negative) Urine Blood (Negative) Urine Nitrite (Negative) Urine Bilirubin (Negative) Urine Urobilinogen (<2.0) mg/dL Ur Leukocyte Esterase (Negative) Urine RBC (0-5) /hpf Urine WBC (0-5) /hpf Ur Squamous Epith Cells (0-4) /hpf Urine Bacteria (None) /hpf Urine Mucus (None) /hpf Urine HCG, Qual Not Detected (Not Detectd) Disposition <Flip Ritter - Last Filed: 08/26/23 01:32> Is patient prescribed a controlled substance at d/c from ED?: No Time of Disposition: 04:20 <Dennis Archuleta - Last Filed: 09/05/23 22:37> Clinical Impression: Dysfunctional uterine bleeding Disposition: HOME SELF-CARE Condition: Good Instructions (If sedation given, give patient instructions): Dysmenorrhea (ED) Referrals: Rudolph Horner [Primary Care Provider] - 1-2 days
[2023-08-26 02:06] LABS: Basophils # (A) 0.1 k/uL (0-0.2); Basophils % (A) 1 %; Eosinophils # (A) 0.2 k/uL (0-0.7); Eosinophils % (A) 2 %; HCT 43.9 % (34.0-46.0); HGB 14.5 gm/dL (11.4-16.0); Lymphocytes # (A) 3.9 k/uL (1.0-4.8); Lymphocytes % (A) 45 %; MCH 29.2 pg (25.0-35.0); MCHC 32.9 g/dL (31.0-37.0); MCV 88.7 fL (80.0-100.0); Monocytes # (A) 0.5 k/uL (0-1.0); Monocytes % (A) 5 %; Neutrophils # (A) 3.9 k/uL (1.3-7.7); Neutrophils % (A) 45 %; Platelet Count 211 k/uL (150-450); RBC 4.95 m/uL (3.80-5.40); RDW 12.5 % (11.5-15.5); WBC 8.6 k/uL (3.8-10.6)
[2023-08-26 02:18] LABS: ALT 18 U/L (4-34); AST 19 U/L (14-36); African American GFR (CKD) >90 (>60 ml/min/1.73 sqM); Albumin 4.7 g/dL (3.5-5.0); Alkaline Phosphatase 71 U/L (38-126); Anion Gap 9 mmol/L; Blood Urea Nitrogen 11 mg/dL (7-17); Calcium 9.4 mg/dL (8.4-10.2); Carbon Dioxide 21 mmol/L (22-30); Chloride 110 mmol/L (98-107); Glucose 98 mg/dL (74-99); Non-African American GFR(CKD) >90 (>60 ml/min/1.73 sqM); Potassium 3.7 mmol/L (3.5-5.1); Sodium 140 mmol/L (137-145); Total Bilirubin 0.4 mg/dL (0.2-1.3); Total Protein 7.2 g/dL (6.3-8.2)
[2023-08-26 02:38] LABS: Appearance,Urine Cloudy (Clear); Bacteria,Urine Many /hpf; Bilirubin,Urine Negative (Negative); Blood,Urine Trace (Negative); Color,Urine Light Yellow; Glucose,Urine (UA) Negative (Negative); Ketones,Urine Negative (Negative); Leukocyte Esterase,Urine Negative (Negative); Mucus,Urine Many /hpf; Nitrite,Urine Positive (Negative); Protein,Urine Trace (Negative); RBC,Urine 2 /hpf (0-5); Specific Gravity,Urine 1.031 (1.001-1.035); Squamous Epithelial Cell,Urine 10 /hpf (0-4); Urobilinogen,Urine <2.0 mg/dL (<2.0); WBC,Urine 10 /hpf (0-5)
--- NOTE | 2023-08-26 04:26 | US ---
EXAM: US Pelvis Transabdominal, Complete CLINICAL HISTORY: ITS.REASON US Reason: vag bleeding w clots/pain. Unsure of TECHNIQUE: Real-time complete transabdominal pelvic ultrasound with image documentation. COMPARISON: Pelvic ultrasound in 01/02/2022 FINDINGS: Uterus: Measures 7.7 x 3.6 x 4.4 cm. No focal myometrial lesion. Endometrium measures mm. Right ovary: Measures 3.3 x 4.2 x 3.0 cm. Right ovarian cyst measures 2. 6 x 3.5 x 2.5 cm. Normal color Doppler flow. Left ovary: Measures 1.7 x 2.8 x 1.6 cm. Normal appearance. Normal color Doppler flow. Other: No free fluid. No adnexal mass. IMPRESSION: 1. No acute abnormality. 2. Right ovarian cyst. No ovarian torsion.
[2023-08-26] MEDS: KETOROLAC 15 MG/ML 1 ML VIAL IVP STA (04:35)
== END 2023-08-26 05:39 | disposition home or self-care (01) ==
LOC: EC 01:07
DX: N93.8 Other specified abnormal uterine and vaginal bleeding (principal); N83.201 Unspecified ovarian cyst, right side; F17.200 Nicotine dependence, unspecified, uncomplicated; Z91.040 Latex allergy status; Z91.030 Bee allergy status; Z91.010 Allergy to peanuts; Z88.8 Allergy status to other drugs, medicaments and biological substances
CPT/HCPCS: 36415; 80053; 85025; 81001; 81025; 93975; 76856; 99284; 96374; J1885

== ENCOUNTER 2023-12-29 12:02 | Emergency (ER) | payer OTHER ==
[2023-12-29 12:51] VITALS: TEMP 98.4
--- NOTE | 2023-12-29 13:50 | ED ---
Nausea/Vomiting/Diarrhea HPI - General Source: patient, RN notes reviewed Mode of arrival: wheelchair Limitations: no limitations <Davidson Coates - Last Filed: 12/29/23 13:47> - General Source: patient, RN notes reviewed, old records reviewed Mode of arrival: wheelchair Limitations: no limitations - History of Present Illness MD complaint: nausea, vomiting -: days(s) Description of Vomiting: food contents, watery Description of Diarrhea: water, mucous Associated Abdominal Pain: Yes Location: diffuse Radiation: none Severity: moderate Severity scale (1-10): 6 Quality: stabbing, aching Consistency: constant Improves with: none Worsens with: none Associated Symptoms: loss of appetite, nausea/vomiting, weakness <Dennis Archuleta - Last Filed: 12/31/23 19:49> - General Chief complaint: Nausea/Vomiting/Diarrhea Stated complaint: Headache, fever, vomit, dizziness Time Seen by Provider: 12/29/23 12:21 - History of Present Illness Initial comments: Quick note 23-year-old female presents emergency department chief complaint of h eadache, nausea vomiting. States started few days ago. Patient states nothing makes the pain feel better. She is unable to keep anything down at this time she never had anything like this in the past she reports fever denies any neck pain or neck stiffness (Davidson Coates) This is a 23-year-old female for complaints of headache nausea vomiting body aches pains she believes she has had a fever some eye swelling (Dennis Archuleta) - Related Data Home Medications Medication Instructions Recorded Confirmed Ergocalciferol (Vitamin D2) 1,250 mcg PO QMONTHLY 05/27/22 05/27/22 [Drisdol (50,000 Iu)] Previous Rx's Medication Instructions Recorded Albuterol Nebulized [Ventolin 2.5 mg INHALATION Q4H PRN #75 ml 05/27/22 Nebulized] Amoxicillin 1,000 mg PO Q8H 5 Days #30 capsule 05/27/22 Ipratropium Nebulized [Atrovent 0.5 mg INHALATION Q6HR #300 ml 05/27/22 Nebulized 0.2 MG/ML] Ondansetron Odt [Zofran Odt] 4 mg PO Q8HR PRN #15 tab 05/27/22 predniSONE [Deltasone] 20 mg PO BID #10 tab 05/27/22 Lidocaine 5% Patch [Lidoderm 5% 1 patch TOPICAL DAILY #30 patch 11/18/22 Patch] predniSONE 50 mg PO DAILY #5 tab 11/18/22 Allergies Allergy/AdvReac Type Severity Reaction Status Date / Time latex Allergy Rash/Hives Verified 12/29/23 12:48 pine nut Allergy Rapid Verified 12/29/23 12:48 Heart Rate tree nut Allergy Unknown Verified 12/29/23 12:48 venom-honey bee Allergy Rash/Hives Verified 12/29/23 12:48 [bee venom (honey bee)] artifical kang tree Allergy Rash/Hives Uncoded 12/29/23 12:48 Review of Systems ROS Other: All systems not noted in ROS Statement are negative. <Davidson Coates - Last Filed: 12/29/23 13:47> ROS Other: All systems not noted in ROS Statement are negative. <Dnenis Archuleta - Last Filed: 12/31/23 19:49> ROS Statement: Those systems with pertinent positive or pertinent negative responses have been documented in the HPI. Past Medical History Past Medical History: No Reported History Additional Past Medical History / Comment(s): Pneumonia hx, ovarian cyst History of Any Multi-Drug Resistant Organisms: None Reported Past Surgical History: Hysterectomy, Tubal Ligation Additional Past Surgical History / Comment(s): uterine ablation Past Anesthesia/Blood Transfusion Reactions: No Reported Reaction Past Psychological History: Anxiety, Depression Smoking Status: Former smoker, Vaper Past Alcohol Use History: None Reported Past Drug Use History: None Reported - Past Family History Father Family Medical History: Hypertension <Davidson Coates - Last Filed: 12/29/23 13:47> General Exam Limitations: no limitations <Davidson Coates - Last Filed: 12/29/23 13:47> General appearance: alert, in no apparent distress Head exam: Present: atraumatic, normocephalic, normal inspection Eye exam: Present: normal appearance, PERRL, EOMI. Absent: scleral icterus, conjunctival injection, periorbital swelling ENT exam: Present: normal exam, mucous membranes moist Neck exam: Present: normal inspection. Absent: tenderness, meningismus, lymphadenopathy Respiratory exam: Present: normal lung sounds bilaterally. Absent: respiratory distress, wheezes, rales, rhonchi, stridor Cardiovascular Exam: Present: regular rate, normal rhythm, normal heart sounds. Absent: systolic murmur, diastolic murmur, rubs, gallop, clicks GI/Abdominal exam: Present: soft, normal bowel sounds. Absent: distended, tenderness, guarding, rebound, rigid Extremities exam: Present: normal inspection, full ROM, normal capillary refill. Absent: tenderness, pedal edema, joint swelling, calf tenderness Back exam: Present: normal inspection Neurological exam: Present: alert, oriented X3, CN II-XII intact Psychiatric exam: Present: normal affect, normal mood Skin exam: Present: warm, dry, intact, normal color. Absent: rash <Dennis Archuleta - Last Filed: 12/31/23 19:49> - General Exam Comments Initial Comments: Visual Physical Exam Vital signs reviewed General: Well-appearing, nontoxic, no acute distress. Head: Normocephalic, atraumatic Eyes: PERRLA, EOMI ENT: Airway patent Chest: Nonlabored breathing Skin: No visual rash, normal skin tone Neuro: Alert and oriented 3 Musculoskeletal: No gross abnormalities (Davidson Coates) Course <Dennis Archuleta - Last Filed: 12/31/23 19:49> Vital Signs 12/29/23 12/29/23 12:48 17:10 Temperature 98.4 F Pulse Rate 75 80 Respiratory 18 16 Rate Blood Pressure 104/72 118/77 O2 Sat by Pulse 98 99 Oximetry - Reevaluation(s) Reevaluation #1: 12/29/23 16:35 Medical records reviewed (Dennis Archuleta) Reevaluation #2: 12/29/23 16:35 Patient symptoms improved (Dennis Archuleta) Reevaluation #3: 12/29/23 16:35 Patient informed of results and questions answered (Dennis Archuleta) Reevaluation #4: Was pt. sent in by a medical professional or institution (, PA, CHILLER TECHNICIAN, urgent care, hospital, or long term...) When possible be specific @ -no Did you speak to anyone other than the patient for history (EMS, parent, family, police, friend...)? What history was obtained from this source @ -no Did you review nursing and triage notes (agree or disagree)? Why? @ -agree Are old charts reviewed (outside hosp., previous admission, EMS record, old EKG, old radiological studies, urgent care reports/EKG's, long term records)? Report findings @ -yes Differential Diagnosis (chest pain, altered mental status, abdominal pain women, abdominal pain men, vaginal bleeding, weakness, fever, dyspnea, syncope, headache, dizziness, GI bleed, back pain, seizure, CVA, palpatations, mental health, musculoskeletal)? @ -prior EKG interpreted by me (3pts min.). @ -no X-rays interpreted by me (1pt min.). @ -no CT interpreted by me (1pt min.). @ -yes negative for acute disease U/S interpreted by me (1pt. min.). @ -no What testing was considered but not performed or refused? (CT, X-rays, U/S, labs)? Why? @ -none What meds were considered but not given or refused? Why? @ -none Did you discuss the management of the patient with other professionals (professionals i.e. , PA, CHILLER TECHNICIAN, lab, RT, psych nurse, social service manager, pantograph watcher, teacher, medical corps officer, director case)? Give summary @ -no Was smoking cessation discussed for >3mins.? @ -no Was critical care preformed (if so, how long)? @ -no Were there social determinants of health that impacted care today? How? (Homelessness, low income, unemployed, alcoholism, drug addiction, transporta tion, low edu. Level, literacy, decrease access to med. care, long-term, rehab)? @ -none Was there de-escalation of care discussed even if they declined (Discuss DNR or withdrawal of care, Hospice)? DNR status @ -no What co-morbidities impacted this encounter? (DM, HTN, Smoking, COPD, CAD, Cancer, CVA, ARF, Chemo, Hep., AIDS, mental health diagnosis, sleep apnea, morbid obesity)? @ -none Was patient admitted / discharged? Hospital course, mention meds given and route, prescriptions, significant lab abnormalities, going to OR and other pertinent info. @ - 23 female with migraine type headache believe she has bodyaches and pains but no acute cause of symptoms found. Patient feels improved and can be discharged home Discharge Undiagnosed new problem with uncertain prognosis? @ -no Drug Therapy requiring intensive monitoring for toxicity (Heparin, Nitro, Insulin, Cardizem)? @ -no Were any procedures done? @ -no Diagnosis/symptom? @ -Migraine headache Acute, or Chronic, or Acute on Chronic? @ -Acute Uncomplicated (without systemic symptoms) or Complicated (systemic symptoms)? @ -Complicated Side effects of treatment? @ -no Exacerbation, Progression, or Severe Exacerbation? @ -exacerbation Poses a threat to life or bodily function? How? (Chest pain, [place], [place], pneumonia, PE, COPD, DKA, ARF, appy, cholecystitis, CVA, Diverticulitis, Homicidal, Suicidal, threat to staff... and all critical care pts) @ -yes (Dennis Archuleta) Reevaluation #5: Differential Headache: Migraine, tension, cluster, carbon monoxide, central venous thrombosis, pension karma temporal arteritis, acute closure glaucoma, intercranial hemorrhage, mastoiditis, sinusitis, head injury, this is not meant to be an all-inclusive list. (Dennis Archuleta) Medical Decision Making <Davidson Coates - Last Filed: 12/29/23 13:47> - Lab Data Result diagrams: 12/29/23 14:28 12/29/23 14:28 - Radiology Data Radiology results: report reviewed (CT brain is negative for acute disease), image reviewed <Dennis Archuleta - Last Filed: 12/31/23 19:49> - Medical Decision Making I completed the quick note portion of this chart signed Davidson Coates PA-C (Davidson Coates) 23 female with migraine type headache believe she has bodyaches and pains but no acute cause of symptoms found. Patient feels improved and can be discharged home (Dennis Archuleta) - Lab Data Lab Results 12/29/23 12/29/23 12/29/23 Range/Units 14:28 14:28 14:36 WBC 6.6 (3.8-10.6) k/uL RBC 5.02 (3.80-5.40) m/uL Hgb 15.2 (11.4-16.0) gm/dL Hct 43.7 (34.0-46.0) % MCV 87.0 (80.0-100.0) fL MCH 30.2 (25.0-35.0) pg MCHC 34.8 (31.0-37.0) g/dL RDW 12.2 (11.5-15.5) % Plt Count 180 (150-450) k/uL MPV 7.4 Neutrophils % 66 % Lymphocytes % 27 % Monocytes % 5 % Eosinophils % 1 % Basophils % 0 % Neutrophils # 4.3 (1.3-7.7) k/uL Lymphocytes # 1.7 (1.0-4.8) k/uL Monocytes # 0.3 (0-1.0) k/uL Eosinophils # 0.1 (0-0.7) k/uL Basophils # 0.0 (0-0.2) k/uL Sodium 137 (137-145) mmol/L Potassium 3.8 (3.5-5.1) mmol/L Chloride 103 (98-107) mmol/L Carbon Dioxide 23 (22-30) mmol/L Anion Gap 11 mmol/L BUN 7 (7-17) mg/dL Creatinine 0.49 L (0.52-1.04) mg/dL Est GFR (CKD-EPI)AfAm >90 (>60 ml/min/1.73 sqM) Est GFR (CKD-EPI)NonAf >90 (>60 ml/min/1.73 sqM) Glucose 95 (74-99) mg/dL Calcium 9.2 (8.4-10.2) mg/dL Total Bilirubin 0.4 (0.2-1.3) mg/dL AST 25 (14-36) U/L ALT 26 (4-34) U/L Alkaline Phosphatase 84 (38-126) U/L Total Protein 7.7 (6.3-8.2) g/dL Albumin 4.8 (3.5-5.0) g/dL Influenza Type A (PCR) Not Detected (Not Detectd) Influenza Type B (PCR) Not Detected (Not Detectd) RSV (PCR) Not Detected (Not Detectd) SARS-CoV-2 (PCR) Not Detected (Not Detectd) Disposition <Davidson Coates - Last Filed: 12/29/23 13:47> Is patient prescribed a controlled substance at d/c from ED?: No <Dennis Archuleta - Last Filed: 12/31/23 19:49> Clinical Impression: Dehydration, Nausea & vomiting Disposition: HOME SELF-CARE Condition: Good Instructions (If sedation given, give patient instructions): Acute Nausea and Vomiting (ED) Referrals: Rudolph Horner [Primary Care Provider] - 1-2 days
[2023-12-29 14:36] LABS: Basophils % (A) 0 %; Eosinophils # (A) 0.1 k/uL (0-0.7); Eosinophils % (A) 1 %; HCT 43.7 % (34.0-46.0); HGB 15.2 gm/dL (11.4-16.0); Lymphocytes # (A) 1.7 k/uL (1.0-4.8); Lymphocytes % (A) 27 %; MCH 30.2 pg (25.0-35.0); MCHC 34.8 g/dL (31.0-37.0); Mean Platelet Volume 7.4; Monocytes # (A) 0.3 k/uL (0-1.0); Monocytes % (A) 5 %; Neutrophils # (A) 4.3 k/uL (1.3-7.7); Neutrophils % (A) 66 %; Platelet Count 180 k/uL (150-450); RBC 5.02 m/uL (3.80-5.40); RDW 12.2 % (11.5-15.5); WBC 6.6 k/uL (3.8-10.6)
[2023-12-29 14:47] LABS: ALT 26 U/L (4-34); AST 25 U/L (14-36); African American GFR (CKD) >90 (>60 ml/min/1.73 sqM); Albumin 4.8 g/dL (3.5-5.0); Alkaline Phosphatase 84 U/L (38-126); Anion Gap 11 mmol/L; Blood Urea Nitrogen 7 mg/dL (7-17); Calcium 9.2 mg/dL (8.4-10.2); Carbon Dioxide 23 mmol/L (22-30); Chloride 103 mmol/L (98-107); Glucose 95 mg/dL (74-99); Non-African American GFR(CKD) >90 (>60 ml/min/1.73 sqM); Potassium 3.8 mmol/L (3.5-5.1); Sodium 137 mmol/L (137-145); Total Bilirubin 0.4 mg/dL (0.2-1.3); Total Protein 7.7 g/dL (6.3-8.2)
[2023-12-29] MEDS: SODIUM CHLORIDE 0.9% 1,000 ML IV STA (14:59)
[2023-12-29] MEDS: SODIUM CHLORIDE 0.9% 500 ML 500 ML IV STA (15:00)
[2023-12-29] MEDS: IBUPROFEN IV 800 MG in SODIUM CHLORIDE 0.9% 250 ML IV ONE (15:37)
[2023-12-29] MEDS: ACETAMINOPHEN IV (For NPO) 1,000 MG in EMPTY BAG 1 BAG IVPB STA (15:37)
--- NOTE | 2023-12-29 16:31 | CT ---
EXAMINATION TYPE: CT brain wo con DATE OF EXAM: 12/29/2023 COMPARISON: None CLINICAL INDICATION: Female, 23 years old with history of boyer; PHH, headache xfew days. TECHNIQUE: CT of the brain performed without contrast with sagittal and coronal reformats. CT DLP: 1095.4 mGycm Automated exposure control for dose reduction was used. Findings: The ventricles, basal cisterns and sulci over the convexities are within normal limits and there is n o mass effect or shift of midline structures. There is a tiny focus of abnormal increased density in the subcortical white matter of the left parie balaji lobe. Possibly an artifact given the history of headache and tiny focus of hemorrhage or possibly calcification to be considered. MRI of the brain with and without contrast is recommended. The posterior fossa including the brainstem, fourth ventricle and cerebellar pontine angles appear no rmal. Intraorbital contents appear normal and symmetric. Visualized paranasal sinuses and mastoid air cells are well aerated. The calvarium is intact. IMPRESSION: Tiny focus of hyperdensity in the subcortical white matter of the left parietal lobe as described abo ve. MRI of the brain with and without contrast is recommended. [facility], , 12/29/2023 4:29 PM
[2023-12-29] MEDS: KETOROLAC 15 MG/ML 1 ML VIAL IVP STA (16:49)
[2023-12-29] MEDS: diphenhydrAMINE 50 MG/ML 1 ML VIAL IVP STA (16:49)
[2023-12-29] MEDS: PROCHLORPERAZINE INJ 10 MG/2 ML VIAL IVP STA (16:49)
[2023-12-29 17:12] VITALS: BP 118/77; PULSE 80; RESP 16
== END 2023-12-29 17:12 | disposition home or self-care (01) ==
LOC: EC 12:02
CPT/HCPCS: 36415; 70450; 80053; 85025; 87636; 96361; 96365; 96375; 99284

== ENCOUNTER 2024-08-07 14:01 | Emergency (ER) | payer BC, OTHER ==
[2024-08-07] MEDS: ONDANSETRON 4 MG/2 ML VIAL IVP STA (14:39)
[2024-08-07] MEDS: KETOROLAC 15 MG/ML 1 ML VIAL IVP STA (14:39)
[2024-08-07] MEDS: MORPHINE SULFATE 4 MG/ML SYRINGE IVP STA (14:40)
[2024-08-07] MEDS: SODIUM CHLORIDE 0.9% 1,000 ML IV ONE (14:40)
[2024-08-07 14:54] LABS: Basophils # (A) 0.04 10*3/uL (0.00-0.10); Basophils % (A) 0.4 %; Eosinophils # (A) 0.28 10*3/uL (0.04-0.35); Eosinophils % (A) 2.8 %; HCT 40.1 % (37.2-46.3); HGB 14.6 g/dL (12.0-15.0); Lymphocytes # (A) 3.62 10*3/uL (0.90-5.00); Lymphocytes % (A) 36.5 %; MCH 29.8 pg (27.0-32.0); MCHC 36.4 g/dL (32.0-37.0); MCV 81.8 fL (80.0-97.0); Mean Platelet Volume 9.6 fL (9.5-12.2); Monocytes # (A) 0.66 10*3/uL (0.20-1.00); Monocytes % (A) 6.7 %; Neutrophils # (A) 5.27 10*3/uL (1.80-7.70); Neutrophils % (A) 53.2 %; Platelet Count 225 10*3/uL (140-440); RDW 12.2 % (11.5-14.5); WBC 9.91 10*3/uL (4.50-10.00)
[2024-08-07 15:06] LABS: ALT 24 U/L (4-34); AST 20 U/L (14-36); African American GFR (CKD) >90 (>60 ml/min/1.73 sqM); Albumin 4.7 g/dL (3.5-5.0); Alkaline Phosphatase 75 U/L (38-126); Anion Gap 15 mmol/L; Blood Urea Nitrogen 13 mg/dL (7-17); Calcium 9.9 mg/dL (8.4-10.2); Carbon Dioxide 20 mmol/L (22-30); Chloride 103 mmol/L (98-107); Glucose 119 mg/dL (74-99); Non-African American GFR(CKD) >90 (>60 ml/min/1.73 sqM); Potassium 3.6 mmol/L (3.5-5.1); Sodium 138 mmol/L (137-145); Total Bilirubin 0.3 mg/dL (0.2-1.3); Total Protein 7.4 g/dL (6.3-8.2)
--- NOTE | 2024-08-07 15:15 | ED ---
General Adult HPI - General Chief complaint: Back Pain/Injury Stated complaint: Abd Pain/Vomitting Time Seen by Provider: 08/07/24 14:17 Source: patient, family, RN notes reviewed Mode of arrival: ambulatory Limitations: no limitations - History of Present Illness Initial comments: 24-year-old female presents to the emergency department for evaluation of abdominal and back pain. Patient reports that the pain is in her right flank and is a sharp stabbing pain. She notes that this radiates to the front of her abdomen. She notes that this started about 1 hour prior to arrival. She denies any fever, chills. Denies dysuria or hematuria. - Related Data Home Medications Medication Instructions Recorded Confirmed Ergocalciferol (Vitamin D2) 1,250 mcg PO QMONTHLY 05/27/22 05/27/22 [Drisdol (50,000 Iu)] Previous Rx's Medication Instructions Recorded Albuterol Nebulized [Ventolin 2.5 mg INHALATION Q4H PRN #75 ml 05/27/22 Nebulized] Amoxicillin 1,000 mg PO Q8H 5 Days #30 capsule 05/27/22 Ipratropium Nebulized [Atrovent 0.5 mg INHALATION Q6HR #300 ml 05/27/22 Nebulized 0.2 MG/ML] Ondansetron Odt [Zofran Odt] 4 mg PO Q8HR PRN #15 tab 05/27/22 predniSONE [Deltasone] 20 mg PO BID #10 tab 05/27/22 Lidocaine 5% Patch [Lidoderm 5% 1 patch TOPICAL DAILY #30 patch 11/18/22 Patch] predniSONE 50 mg PO DAILY #5 tab 11/18/22 Cephalexin [Keflex] 500 mg PO Q12HR 7 Days #14 cap 08/07/24 HYDROcodone/APAP 7.5-325MG [Hurricane 1 tab PO Q6HR PRN 3 Days #12 tab 08/07/24 7.5-325] Ibuprofen [Motrin] 800 mg PO Q8HR #10 tab 08/07/24 Ondansetron Odt [Zofran Odt] 4 mg PO Q8HR PRN #15 tab 08/07/24 Tamsulosin [Flomax] 0.4 mg PO DAILY #7 cap 08/07/24 Allergies Allergy/AdvReac Type Severity Reaction Status Date / Time latex Allergy Rash/Hives Verified 12/29/23 12:48 pine nut Allergy Rapid Verified 12/29/23 12:48 Heart Rate tree nut Allergy Unknown Verified 12/29/23 12:48 venom-honey bee Allergy Rash/Hives Verified 12/29/23 12:48 [bee venom (honey bee)] artifical kang tree Allergy Rash/Hives Uncoded 12/29/23 12:48 Review of Systems ROS Statement: Those systems with pertinent positive or pertinent negative responses have been documented in the HPI. ROS Other: All systems not noted in ROS Statement are negative. Past Medical History Past Medical History: No Reported History Additional Past Medical History / Comment(s): Pneumonia hx, ovarian cyst History of Any Multi-Drug Resistant Organisms: None Reported Past Surgical History: Hysterectomy, Tubal Ligation Additional Past Surgical History / Comment(s): uterine ablation Past Anesthesia/Blood Transfusion Reactions: No Reported Reaction Past Psychological History: Anxiety, Depression Smoking Status: Former smoker, Vaper Past Alcohol Use History: None Reported Past Drug Use History: None Reported - Past Family History Father Family Medical History: Hypertension General Exam Limitations: no limitations General appearance: alert, in no apparent distress Head exam: Present: atraumatic, normocephalic, normal inspection Eye exam: Present: normal appearance, PERRL, EOMI. Absent: scleral icterus, conjunctival injection, periorbital swelling Respiratory exam: Present: normal lung sounds bilaterally. Absent: respiratory distress, wheezes, rales, rhonchi, stridor Cardiovascular Exam: Present: regular rate, normal rhythm, normal heart sounds. Absent: systolic murmur, diastolic murmur, rubs, gallop, clicks GI/Abdominal exam: Present: soft. Absent: distended, tenderness, guarding, rebound, rigid Extremities exam: Present: normal inspection, full ROM, normal capillary refill. Absent: tenderness, pedal edema, joint swelling, calf tenderness Back exam: Present: normal inspection Neurological exam: Present: alert, oriented X3 Psychiatric exam: Present: normal affect, normal mood Skin exam: Present: warm, dry, intact, normal color. Absent: rash Course Vital Signs 08/07/24 08/07/24 08/07/24 14:04 15:04 16:11 Temperature 98.1 F Pulse Rate 77 60 64 Respiratory 20 14 16 Rate Blood Pressure 137/82 136/70 113/76 O2 Sat by Pulse 98 96 98 Oximetry 08/07/24 18:27 Temperature 97.4 F L Pulse Rate 60 Respiratory 16 Rate Blood Pressure 121/75 O2 Sat by Pulse 96 Oximetry Medical Decision Making - Medical Decision Making Was pt. sent in by a medical professional or institution (, [facility], [facility], urgent care, hospital, or fci...) When possible be specific @ -No Did you speak to anyone other than the patient for history (EMS, parent, family, police, friend...)? What history was obtained from this source @ -No Did you review nursing and triage notes (agree or disagree)? Why? @ -I reviewed and agree with nursing and triage notes Were old charts reviewed (outside hosp., previous admission, EMS record, old EKG, old radiological studies, urgent care reports/EKG's, fci records)? Report findings @ -No old charts were reviewed Differential Diagnosis (chest pain, altered mental status, abdominal pain women, abdominal pain men, vaginal bleeding, weakness, fever, dyspnea, syncope, headache, dizziness, GI bleed, back pain, seizure, CVA, palpatations, mental health, musculoskeletal)? @ -Differential Back Pain: Strain, zoster, cauda equina syndrome, epidural abscess, vertebral osteomyelitis, discitis, fracture, subluxation, disc herniation, DJD, spinal stenosis, dissection, AAA, pancreatitis, peptic ulcer disease, pyelonephritis, kidney stone, this is not meant to be an all-inclusive list. EKG interpreted by me (3pts min.). @ -A none X-rays interpreted by me (1pt min.). @ -None done CT interpreted by me (1pt min.). @ -CT of the abdomen pelvis reveals right moderate hydroureteronephrosis with poor visualization of the distal ureter, suspected obstructive calculus at the distal ureter measuring 3 mm. U/S interpreted by me (1pt. min.). @ -None done What testing was considered but not performed or refused? (CT, X-rays, U/S, labs)? Why? @ -None What meds were considered but not given or refused? Why? @ -None Did you discuss the management of the patient with other professionals (professionals i.e. , [facility], [facility], lab, RT, psych nurse, social work associate, cylinder press operator helper, teacher, customs and immigration officer, medical case worker)? Give summary @ -No Was smoking cessation discussed for >3mins.? @ -No Was critical care preformed (if so, how long)? @ -No Were there social determinants of health that impacted care today? How? (Homelessness, low income, unemployed, alcoholism, drug addiction, transportation, low edu. Level, literacy, decrease access to med. care, half-way, rehab)? @ -No Was there de-escalation of care discussed even if they declined (Discuss DNR or withdrawal of care, Hospice)? DNR status @ -No What co-morbidities impacted this encounter? (DM, HTN, Smoking, COPD, CAD, Cancer, CVA, ARF, Chemo, Hep., AIDS, mental health diagnosis, sleep apnea, morbid obesity)? @ -None Was patient admitted / discharged? Hospital course, mention meds given and route, prescriptions, significant lab abnormalities, going to OR and other pertinent info. @ -Discharge. Patient presented emergency department for evaluation of flank pain. Laboratory studies obtained revealing no significant leukocytosis, hemoglobin 14.6; CMP is nonactionable UA shows small blood, 16 RBCs, 17 WBCs, urine hCG not detected. CT of the abdomen pelvis reveals right moderate hy droureteronephrosis with poor visualization of the distal ureter, suspected obstructive calculus at the distal ureter measuring 3 mm. Patient was advised on findings. She will be started on antibiotics. She will be advised to follow-up with urology. She is understanding agreeable with plan. Patient stable at time of discharge. Case discussed with Dr. Wooten. Undiagnosed new problem with uncertain prognosis? @ -No Drug Therapy requiring intensive monitoring for toxicity (Heparin, Nitro, Insulin, Cardizem)? @ -No Were any procedures done? @ -No Diagnosis/symptom? @ -Kidney stone t Acute, or Chronic, or Acute on Chronic? @ -Acute Uncomplicated (without systemic symptoms) or Complicated (systemic symptoms)? @ -Uncomplicated Side effects of treatment? @ -No Exacerbation, Progression, or Severe Exacerbation? @ -No Poses a threat to life or bodily function? How? (Chest pain, USA, SC, pneumonia, PE, COPD, DKA, ARF, appy, cholecystitis, CVA, Diverticulitis, Homicidal, Suicidal, threat to staff... and all critical care pts) @ -No - Lab Data Result diagrams: 08/07/24 14:20 08/07/24 14:20 Lab Results 08/07/24 08/07/24 08/07/24 Range/Units 14:20 14:20 16:38 WBC 9.91 (4.50-10.00) 10*3/uL RBC 4.90 (4.10-5.20) 10*6/uL Hgb 14.6 (12.0-15.0) g/dL Hct 40.1 (37.2-46.3) % MCV 81.8 (80.0-97.0) fL MCH 29.8 (27.0-32.0) pg MCHC 36.4 (32.0-37.0) g/dL Plt Count 225 (140-440) 10*3/uL MPV 9.6 (9.5-12.2) fL Immature Gran % (Auto) 0.4 % Neutrophils % 53.2 % Lymphocytes % 36.5 % Monocytes % 6.7 % Eosinophils % 2.8 % Basophils % 0.4 % Immature Gran # 0.04 (0.00-0.04) 10*3/uL Neutrophils # 5.27 (1.80-7.70) 10*3/uL Lymphocytes # 3.62 (0.90-5.00) 10*3/uL Monocytes # 0.66 (0.20-1.00) 10*3/uL Eosinophils # 0.28 (0.04-0.35) 10*3/uL Basophils # 0.04 (0.00-0.10) 10*3/uL Sodium 138 (137-145) mmol/L Potassium 3.6 (3.5-5.1) mmol/L Chloride 103 (98-107) mmol/L Carbon Dioxide 20 L (22-30) mmol/L Anion Gap 15 mmol/L BUN 13 (7-17) mg/dL Creatinine 0.58 (0.52-1.04) mg/dL Est GFR (CKD-EPI)AfAm >90 (>60 ml/min/1.73 sqM) Est GFR (CKD-EPI)NonAf >90 (>60 ml/min/1.73 sqM) Glucose 119 H (74-99) mg/dL Calcium 9.9 (8.4-10.2) mg/dL Total Bilirubin 0.3 (0.2-1.3) mg/dL AST 20 (14-36) U/L ALT 24 (4-34) U/L Alkaline Phosphatase 75 (38-126) U/L Total Protein 7.4 (6.3-8.2) g/dL Albumin 4.7 (3.5-5.0) g/dL Urine Color Light Yellow Urine Appearance Cloudy H (Clear) Urine pH 6.0 (5.0-8.0) Ur Specific Capron 1.026 (1.001-1.035) Urine Protein Negative (Negative) Urine Glucose (UA) Negative (Negative) Urine Ketones 1+ H (Negative) Urine Blood Small H (Negative) Urine Nitrite Negative (Negative) Urine Bilirubin Negative (Negative) Urine Urobilinogen <2.0 (<2.0) mg/dL Ur Leukocyte Esterase Negative (Negative) Urine RBC 16 H (0-5) /hpf Urine WBC 17 H (0-5) /hpf Ur Squamous Epith Cells 15 H (0-4) /hpf Urine Bacteria Moderate H (None) /hpf Urine Mucus Occasional H (None) /hpf Urine HCG, Qual (Not Detectd) 08/07/24 Range/Units 16:38 WBC (4.50-10.00) 10*3/uL RBC (4.10-5.20) 10*6/uL Hgb (12.0-15.0) g/dL Hct (37.2-46.3) % MCV (80.0-97.0) fL MCH (27.0-32.0) pg MCHC (32.0-37.0) g/dL Plt Count (140-440) 10*3/uL MPV (9.5-12.2) fL Immature Gran % (Auto) % Neutrophils % % Lymphocytes % % Monocytes % % Eosinophils % % Basophils % % Immature Gran # (0.00-0.04) 10*3/uL Neutrophils # (1.80-7.70) 10*3/uL Lymphocytes # (0.90-5.00) 10*3/uL Monocytes # (0.20-1.00) 10*3/uL Eosinophils # (0.04-0.35) 10*3/uL Basophils # (0.00-0.10) 10*3/uL Sodium (137-145) mmol/L Potassium (3.5-5.1) mmol/L Chloride (98-107) mmol/L Carbon Dioxide (22-30) mmol/L Anion Gap mmol/L BUN (7-17) mg/dL Creatinine (0.52-1.04) mg/dL Est GFR (CKD-EPI)AfAm (>60 ml/min/1.73 sqM) Est GFR (CKD-EPI)NonAf (>60 ml/min/1.73 sqM) Glucose (74-99) mg/dL Calcium (8.4-10.2) mg/dL Total Bilirubin (0.2-1.3) mg/dL AST (14-36) U/L ALT (4-34) U/L Alkaline Phosphatase (38-126) U/L Total Protein (6.3-8.2) g/dL Albumin (3.5-5.0) g/dL Urine Color Urine Appearance (Clear) Urine pH (5.0-8.0) Ur Specific Capron (1.001-1.035) Urine Protein (Negative) Urine Glucose (UA) (Negative) Urine Ketones (Negative) Urine Blood (Negative) Urine Nitrite (Negative) Urine Bilirubin (Negative) Urine Urobilinogen (<2.0) mg/dL Ur Leukocyte Esterase (Negative) Urine RBC (0-5) /hpf Urine WBC (0-5) /hpf Ur Squamous Epith Cells (0-4) /hpf Urine Bacteria (None) /hpf Urine Mucus (None) /hpf Urine HCG, Qual Not Detected (Not Detectd) Disposition Clinical Impression: Urolithiasis Disposition: HOME SELF-CARE Condition: Stable Instructions (If sedation given, give patient instructions): Kidney Stones (ED) Additional Instructions: Please follow up with urology. Return to the emergency department for new or worsening symptoms. Prescriptions: Tamsulosin [Flomax] 0.4 mg PO DAILY #7 cap Cephalexin [Keflex] 500 mg PO Q12HR 7 Days #14 cap Ibuprofen [Motrin] 800 mg PO Q8HR #10 tab HYDROcodone/APAP 7.5-325MG [Hurricane 7.5-325] 1 tab PO Q6HR PRN 3 Days #12 tab PRN Reason: Pain Ondansetron Odt [Zofran Odt] 4 mg PO Q8HR PRN #15 tab PRN Reason: Nausea Is patient prescribed a controlled substance at d/c from ED?: Yes When asked, does pt state using other controlled substances?: No If prescribed controlled substance>3 days was MAPS reviewed?: Prescribed <3 Days Referrals: Rudolph Horner [Primary Care Provider] - 1-2 days Doron Boyd MD [STAFF PHYSICIAN] - 1-2 days
[2024-08-07] MEDS: HYDROmorphone 0.5 MG/0.5 ML SYRINGE IVP STA (16:08)
[2024-08-07 16:14] VITALS: RESP 16
[2024-08-07 16:55] LABS: Appearance,Urine Cloudy (Clear); Bacteria,Urine Moderate /hpf; Bilirubin,Urine Negative (Negative); Blood,Urine Small (Negative); Color,Urine Light Yellow; Glucose,Urine (UA) Negative (Negative); Ketones,Urine 1+ (Negative); Leukocyte Esterase,Urine Negative (Negative); Mucus,Urine Occasional /hpf; Nitrite,Urine Negative (Negative); Protein,Urine Negative (Negative); RBC,Urine 16 /hpf (0-5); Specific Gravity,Urine 1.026 (1.001-1.035); Squamous Epithelial Cell,Urine 15 /hpf (0-4); Urobilinogen,Urine <2.0 mg/dL (<2.0); WBC,Urine 17 /hpf (0-5)
--- NOTE | 2024-08-07 17:29 | CT ---
EXAMINATION TYPE: CT abdomen pelvis wo con CT DLP: 1057.4 mGycm, Automated exposure control for dose reduction was used. DATE OF EXAM: 08/07/2024 4:09 PM COMPARISON: Pelvic ultrasound 12/26/2017 CLINICAL INDICATION:Female, 24 years old with history of rt flank pain; Right flank pain TECHNIQUE: Axial CT abdomen pelvis wo con;Sagittal and coronal reformats were created on a separate workstation. Contrast used: mL of , (none if empty) Oral contrast used: without Oral Contrast (none if empty) FINDINGS: LOWER CHEST: Bibasilar atelectasis/scarring Evaluation is significantly limited secondary to lack of intravenous contrast. ABDOMEN LIVER: Grossly unremarkable. GALLBLADDER AND BILE DUCTS: Grossly unremarkable. PANCREAS: Grossly unremarkable. SPLEEN: Grossly unremarkable. Splenule noted. ADRENAL GLANDS: Grossly unremarkable. KIDNEYS AND URETERS: There is moderate right hydroureteronephrosis. The visualized portion of the rig ht ureter is dilated however there is poor visualization of the remainder of the right ureter more di stally. In the area of the right ureterovesicular junction within the suspected right ureter there is a calculus measuring up to 3 mm. There is no left hydronephrosis. There are no calculi seen in the b ilateral right kidneys. PELVIS BLADDER: Incompletely distended and grossly unremarkable. REPRODUCTIVE: The uterus is not visualized on this exam although was noted to be present on prior exa minations. There is a hypoattenuated focus in the left adnexa measuring up to 3.6 cm presumably the l eft ovary. In the high right upper adnexa there is a soft tissue focus measuring up to at least 2.5 c m presumably the right ovary. ABDOMEN & PELVIS STOMACH AND BOWEL: The stomach is grossly unremarkable. The small bowel is of normal caliber. No evid ence of bowel obstruction. PERITONEUM/RETROPERITONEUM: No evidence of pneumoperitoneum or free fluid. VASCULATURE: No evidence of aortic aneurysm. MUSCULOSKELETAL: No acute osseous abnormalities LYMPH NODES: No gross evidence for lymphadenopathy. SOFT TISSUE/ABDOMINAL WALL: Tiny fat filled umbilical hernia. IMPRESSION: 1. There is right moderate hydroureteronephrosis with poor visualization of the distal ureter howeve r there is a suspected obstructive calculus seen in the distal ureter at the ureteral vesicular junct ion measuring up to 3 mm. 2. Uterus is not visualized presumably surgically absent. Correlate for surgical history. Bilateral a dnexal soft tissue findings may correspond to ovaries however if patient has had ovaries removed a pe lvic MRI with IV contrast is recommended to further characterize these findings. [facility], , 08/07/2024 5:27 PM
[2024-08-07] MEDS: ACET/COD 300 MG/30 MG STARTER PACK 6 TAB BTL PO STA (18:26)
[2024-08-07] MEDS: ONDANSETRON 4 MG ODT STARTER PACK 2 TAB BTL PO STA (18:26)
[2024-08-07 18:28] VITALS: BP 121/75; PULSE 60; TEMP 97.4
== END 2024-08-07 18:38 | disposition home or self-care (01) ==
LOC: EC 14:01
DX: N13.2 Hydronephrosis with renal and ureteral calculous obstruction (principal); B96.20 Unspecified Escherichia coli [E. coli] as the cause of diseases classified elsewhere; F17.290 Nicotine dependence, other tobacco product, uncomplicated; Z91.030 Bee allergy status; Z91.040 Latex allergy status; Z91.018 Allergy to other foods
CPT/HCPCS: 36415; 80053; 85025; 81001; 81025; 87086; 87077; 87186; 74176; 99284; 96374; 96375 ×3; 96361 ×2; J2270; J2405; J1885; S0119; J1171